=== PATIENT | female | born 1980 | race Caucasian/White ===

== ENCOUNTER 2019-11-27 16:50 | Emergency (ER) | payer OTHER, SELFPAY ==
[2019-11-27 17:00] VITALS: BP 121/84; PULSE 100; RESP 16; TEMP 37.1; O2SAT 98; BMI 28.8
--- NOTE | 2019-11-27 17:07 | ED_ITS ---
Entered by Daniela Truong, acting as scribe for Maged Moreno DO Nov 27, 2019 16:50 Documented by User: Hugo Hugo DO 11/28/19 03:22 HPI - Female Genitourinary General: Chief complaint: Urogenital-Female Stated complaint: BLEEDING HEAVY Time Seen by Provider: 11/27/19 17:08 PFSH ED PFSH: Medical History (Updated 11/27/19 @ 20:49 by Hugo Hugo DO) Degenerative disc disease Surgical History (Updated 11/27/19 @ 17:39 by Daniela Truong) History of back surgery History of tubal ligation Social History Smoking and tobacco status: current every day smoker Course Vital Signs: Vital signs: Vital Signs Temperature 98.7 F 11/27/19 17:00 Pulse Rate 81 11/27/19 20:47 Respiratory Rate 16 11/27/19 20:47 Blood Pressure 97/79 11/27/19 20:47 Pulse Oximetry 98 11/27/19 20:47 MDM - Female MDM Narrative: Medical decision making narrative: 39-year-old female checked out to me by Dr. Moreno. She has been experiencing heavy bleeding, with pelvic pain. No discharge otherwise. Her laboratory is benign. Her hemoglobin is 12. Ultrasound is normal. This is likely dysfunctional or anovulatory bleeding. She will be placed on a 7-day course of progesterone. Gynecology follow-up. Lab Data: Labs: Lab Results 11/27/19 11/27/19 11/27/19 Range/Units 15:15 15:15 17:51 WBC 8.4 (4.0-10.0) 10^3/ uL RBC 4.82 (4.1-5.3) 10^6/u L Hgb 12.2 (11.5-15.3) g/dL Hct 39.1 (37.0-47.0) % MCV 81.1 (81-99) fL MCH 25.3 L (28.0-34.0) pg MCHC 31.2 (30.0-36.0) g/dL RDW 15.7 H (12.1-15.1) % Plt Count 323 (130-400) 10^3/c mm MPV 10.2 (7.4-10.4) fL Neut % (Auto) 52.7 % Lymph % (Auto) 32.2 % [place] % (Auto) 10.5 % Eos % (Auto) 3.1 % Baso % (Auto) 1.0 % Neut # (Auto) 4.5 (1.8-7.7) 10^3/u L Lymph # (Auto) 2.7 (0.8-4.8) 10^3/u L [place] # (Auto) 0.9 (0.2-0.9) 10^3/u L Eos # (Auto) 0.3 (0.0-0.8) 10^3/u L Baso # (Auto) 0.1 (0.0-0.1) 10^3/u L Nucleated RBC % (a uto) 0 % Nucleated RBCs # 0.0 /100WBC Urine Color Red (Yellow) Urine Appearance Turbid (CLEAR) Urine pH 7 (5-7) Ur Specific Gravit y 1.015 (1.005-1.030) Urine Protein 3+ H (Negative) Urine Glucose (UA) Norm (Normal) Urine Ketones Negative (Negative) Urine Blood 3+ H (Negative) Urine Nitrate Negative (Negative) Urine Bilirubin Neg (NEGATIVE) Urine Urobilinogen Norm (Negative) mg/dL Ur Leukocyte Anne ase Negative (Negative) Urine RBC Too numerous to c nt H (0-2) /hpf Urine WBC None (0-5) /hpf Ur Squamous Epith Cells 0-4 H (0-5) Urine Bacteria 1+ H (NONE) Urine HCG, Qual Negative (Negative) Discharge Plan Discharge Patient Disposition: Home, Self-Care Clinical Impression: DUB (dysfunctional uterine bleeding) Condition: Stable Prescriptions: New medroxyprogesterone 10 mg tablet 10 mg PO DAILY 7 Days Qty: 7 RF: 0 No Action Calcium 600 600 mg calcium (1,500 mg) Tablet 600 mg PO DAILY RF: 0 iron 325 mg (65 mg iron) Tablet 325 mg PO DAILY RF: 0 Vitamin B-12 2,000 mcg Tablet Extended Release 2,000 mcg PO DAILY RF: 0 Vitamin D3 25 mcg (1,000 unit) Capsule 25 mcg PO DAILY RF: 0 Discharge Orders: Discharge Order (Routine); Ordered 11/27/19 Ordered By: Hugo Hugo Referrals: George More MD [Physician] - 4-7 days Discharge Diet: Usual diet Discharge Activity: Increase activity as tolerated Patient Instructions: Dysfunctional Uterine Bleeding (ED) Activity Restrictions/Additional Instructions: Return for fever greater than 100, worsening pain, continuing to pass large clots despite treatment, other concerning symptoms. Discharge Date/Time: 11/27/19 20:59 Coding Level of Care Code ED Prom[employer] Executive Producer for Chg Fwd Exam Comprehensive Documented by User: Maged Moreno DO 11/29/19 13:14 HPI - Female Genitourinary 2 General: Chief complaint: Urogenital-Female Stated complaint: BLEEDING HEAVY Time Seen by Provider: 11/27/19 17:08 History of Present Illness: HPI Narrative: 39 yo female presents with heavy bleeding. Pt states that she is a week and a half early for her period, she is bleeding heavy and passing clots. Pt states that she has stabbing pain in her lower abdomen. Pt denies a chance of . Associated symptoms: Reports abdominal pain; Deny headache(s), nausea or syncope Date of Last Menstrual Period: 11/26/19 Review of Systems Const: Denies: fever, chills, body aches, fatigue, malaise or night sweats Eyes: Denies: change in vision or blurry vision ENMT: Denies: throat pain, oral sores/lesions, dental pain, nasal discharge or nasal congestion Card: Denies: chest pain, palpitations, irregular heart rhythm, edema, syncope, shortness of breath on exertion, shortness of breath when lying down or leg pain with exertion Resp: Denies: shortness of breath, productive cough, non-productive cough or wheezing GI: Reports: abdominal pain and cramping; Denies: nausea, vomiting, vomiting blood, coffee grounds in vomit, difficulty swallowing, heartburn/indigestion, diarrhea, constipation, blood in stool or black tarry stool : Denies: flank pain, painful urination, urinary frequency, urinary urgency, urinary incontinence or blood in urine Musc: Denies: neck pain, back pain, extremity pain, extremity swelling, joint pain or joint swelling Skin/Breast: Denies: rash, itching or redness Neuro: Denies: headache, numbness in extremities, weakness in extremities, changes in sensation, lack of coordination, difficulty walking, frequent falls, dizziness, vertigo or confusion Psych: Denies: anxiety, depression, loss of interest, visual hallucinations, auditory hallucinations, suicidal ideation or homicidal ideation Endo: Denies: excessive urination, excessive thirst, tired all the time or cold intolerance Mukesh/Lymph: Denies: easy bruising, easy bleeding, petechiae, enlarged lymph nodes or tender lymph nodes PFSH ED PFSH: Medical History (Updated 11/27/19 @ 20:49 by Hugo Hugo DO) Degenerative disc disease Surgical History (Updated 11/27/19 @ 17:39 by Daniela Truong) History of back surgery History of tubal ligation Social History Smoking and tobacco status: current every day smoker Female Reproductive History: Date of last menstrual period: 11/26/19 Physical Exam Const: COMMON NORMALS: average body habitus, oriented x3 and alert GENERAL APPEARANCE: cooperative, comfortable, well kempt and well developed NUTRITIONAL APPEARANCE: not obese ORIENTATION/CONSCIOUSNESS: Yes awake, Yes oriented to person and Yes oriented to place HENMT: COMMON NORMALS: normocephalic and head/scalp atraumatic HEAD & SCALP: normocephalic and atraumatic MOUTH: oral and palatal mucosa normal, lip normal and tongue normal THROAT: posterior oropharynx normal and tonsils normal Eye: COMMON NORMALS: conjunctivae normal and no scleral icterus CONJUNCTIVA: Yes conjunctivae normal Neck/C-Spine: COMMON NORMALS: full ROM, no lymphadenopathy, supple, no meningeal signs and thyroid normal THYROID: thyroid normal and asymmetrical Lymph: LYMPHATIC: no lymphadenopathy noted Resp: COMMON NORMALS: normal respiratory effort, no retractions, no use of accessory muscles and clear to auscultation bilaterally AUSCULTATION: clear to auscultation bilaterally Cardio: COMMON NORMALS: regular rate and regular rhythm RATE: regular rate RHYTHM: regular rhythm HEART SOUNDS: no murmurs GI: COMMON NORMALS: normal to inspection, nondistended, normoactive bowel sounds, soft to palpation and no hepatosplenomegaly PALPATION: Yes soft and Yes no hepatosplenomegaly : COMMON NORMALS: Yes no CVA tenderness BLADDER/KIDNEY EXAM: Yes no CVA tenderness Back/Pelvis: COMMON NORMALS: no CVA tenderness LUMBAR SPINE/LOWER BACK: Yes normal to inspection Extremity: COMMON NORMALS: no clubbing, cyanosis or edema, no calf tenderness and no pedal edema Neuro: COMMON NORMALS: oriented x3 SENSORIUM/ORIENTATION: Yes alert, Yes oriented to person and Yes oriented to place MENINGEAL SIGNS: Yes no meningeal signs Psych: APPEARANCE: Yes well kempt Skin: COMMON NORMALS: no rashes or lesions noted and skin turgor normal GENERAL SKIN EXAM: no rashes or lesions noted and turgor normal Course ED course: Care transferred to Dr. Hugo at change of shift Vital Signs: Vital signs: Vital Signs Temperature 98.7 F 11/27/19 17:00 Pulse Rate 81 11/27/19 20:47 Respiratory Rate 16 11/27/19 20:47 Blood Pressure 97/79 11/27/19 20:47 Pulse Oximetry 98 11/27/19 20:47 MDM - Female Lab Data: Labs: Lab Results 11/27/19 11/27/19 11/27/19 Range/Units 15:15 15:15 17:51 WBC 8.4 (4.0-10.0) 10^3/ uL RBC 4.82 (4.1-5.3) 10^6/u L Hgb 12.2 (11.5-15.3) g/dL Hct 39.1 (37.0-47.0) % MCV 81.1 (81-99) fL MCH 25.3 L (28.0-34.0) pg MCHC 31.2 (30.0-36.0) g/dL RDW 15.7 H (12.1-15.1) % Plt Count 323 (130-400) 10^3/c mm MPV 10.2 (7.4-10.4) fL Neut % (Auto) 52.7 % Lymph % (Auto) 32.2 % [place] % (Auto) 10.5 % Eos % (Auto) 3.1 % Baso % (Auto) 1.0 % Neut # (Auto) 4.5 (1.8-7.7) 10^3/u L Lymph # (Auto) 2.7 (0.8-4.8) 10^3/u L [place] # (Auto) 0.9 (0.2-0.9) 10^3/u L Eos # (Auto) 0.3 (0.0-0.8) 10^3/u L Baso # (Auto) 0.1 (0.0-0.1) 10^3/u L Nucleated RBC % (a uto) 0 % Nucleated RBCs # 0.0 /100WBC Urine Color Red (Yellow) Urine Appearance Turbid (CLEAR) Urine pH 7 (5-7) Ur Specific Gravit y 1.015 (1.005-1.030) Urine Protein 3+ H (Negative) Urine Glucose (UA) Norm (Normal) Urine Ketones Negative (Negative) Urine Blood 3+ H (Negative) Urine Nitrate Negative (Negative) Urine Bilirubin Neg (NEGATIVE) Urine Urobilinogen Norm (Negative) mg/dL Ur Leukocyte Anne ase Negative (Negative) Urine RBC Too numerous to c nt H (0-2) /hpf Urine WBC None (0-5) /hpf Ur Squamous Epith Cells 0-4 H (0-5) Urine Bacteria 1+ H (NONE) Urine HCG, Qual Negative (Negative) Discharge Plan Discharge Patient Disposition: Home, Self-Care Clinical Impression: DUB (dysfunctional uterine bleeding) Condition: Stable Prescriptions: New medroxyprogesterone 10 mg tablet 10 mg PO DAILY 7 Days Qty: 7 RF: 0 No Action Calcium 600 600 mg calcium (1,500 mg) Tablet 600 mg PO DAILY RF: 0 iron 325 mg (65 mg iron) Tablet 325 mg PO DAILY RF: 0 Vitamin B-12 2,000 mcg Tablet Extended Release 2,000 mcg PO DAILY RF: 0 Vitamin D3 25 mcg (1,000 unit) Capsule 25 mcg PO DAILY RF: 0 Discharge Orders: Discharge Order (Routine); Ordered 11/27/19 Ordered By: Hugo Hugo Referrals: George More MD [Physician] - 4-7 days Discharge Diet: Usual diet Discharge Activity: Increase activity as tolerated Patient Instructions: Dysfunctional Uterine Bleeding (ED) Activity Restrictions/Additional Instructions: Return for fever greater than 100, worsening pain, continuing to pass large clots despite treatment, other concerning symptoms. Discharge Date/Time: 11/27/19 20:59 Coding Level of Care Code ED Promos Executive Producer for Chg Fwd Exam Comprehensive The documentation recorded by the Alexi estrada Kialy, accurately reflects the service I personally performed and the decisions made by me, Maged Moreno, Nov 27, 2019 16:50
[2019-11-27 17:18] VITALS: BP 111/72; PULSE 93; RESP 16; O2SAT 94
[2019-11-27 17:35] LABS: Add Urine Microscopic? YES; Bilirubin Urine Neg (NEGATIVE); Blood Urine 3+ (Negative); Glucose Urine UA Norm (Normal); Ketones Urine Negative (Negative); Leukocyte Esterase Urine Negative (Negative); Nitrate Urine Negative (Negative); Protein Urine 3+ (Negative); Specific Gravity, Urine 1.015 (1.005-1.030); Urine Appearance Turbid (CLEAR); Urine Color Red (Yellow); Urobilinogen Urine Norm (Negative); pH Urine 7 (5-7)
[2019-11-27 17:39] LABS: RBC Urine TOO NUMEROUS TO CNT /hpf (0-2)
[2019-11-27 17:41] LABS: Add Urine Culture? Yes; Bacteria Urine 1+; Squamous Epithelial Cell Urine 0-4 (0-5)
[2019-11-27 17:55] LABS: Basophils # 0.1 10^3/uL (0.0-0.1); Eosinophils # 0.3 10^3/uL (0.0-0.8); Eosinophils % 3.1 %; Hematocrit 39.1 % (37.0-47.0); Hemoglobin 12.2 g/dL (11.5-15.3); Lymphocytes # 2.7 10^3/uL (0.8-4.8); Lymphocytes % 32.2 %; Mean Corpuscular HGB Conc 31.2 g/dL (30.0-36.0); Mean Corpuscular Hemoglobin 25.3 pg (28.0-34.0); Mean Corpuscular Volume 81.1 fL (81-99); Mean Platelet Volume 10.2 fL (7.4-10.4); Monocytes # 0.9 10^3/uL (0.2-0.9); Monocytes % 10.5 %; Neutrophils # 4.5 10^3/uL (1.8-7.7); Neutrophils % 52.7 %; Nucleated Red Blood Cells % 0 %; Platelet Count 323 10^3/cmm (130-400); Red Blood Count 4.82 10^6/uL (4.1-5.3); Red Cell Distribution Width 15.7 % (12.1-15.1); White Blood Count 8.4 10^3/uL (4.0-10.0)
--- NOTE | 2019-11-27 18:08 | USR_ITS ---
PROCEDURE INFORMATION: Exam: US Pelvis Complete, Transabdominal and endovaginal. Exam date and time: 11/27/2019 6:39 PM Age: 39 years old Clinical indication: Menstruation abnormalities; Excessive menstruation; With irregular cycle; Prior surgery; Surgery date: 6+ months; Surgery type: Tubal; Additional info: Mennrhogia TECHNIQUE: Imaging protocol: Real-time transabdominal and endovaginal pelvic ultrasound with image documentation. Complete exam. COMPARISON: No relevant prior studies available. FINDINGS: Uterus/cervix: Nongravid anteverted uterus dimensions 10.1 cm x 4.5 cm x 5.3 cm. Endometrium appears normal maximum diameter 7 mm. No endometrial fluid. Normal transition zone. Small simple nabothian cysts. Cervical length approximately 4 cm. Right adnexa: Right ovary measures 3.2 cm x 1.6 cm x 2.5 cm. Dominant follicle cyst right ovary 7 mm in maximum diameter. Left adnexa: Left ovary measures 3.8 cm x 3.5 cm x 3.5 cm. Dominant physiologic cyst left ovary dimensions 19 mm x 11 mm x 19 mm. Other normal appearing smaller follicle cysts. Free fluid: No free fluid the pelvis. Bladder: Unremarkable as imaged. Vasculature: Positive arterial flow to both color Doppler assessment both ovaries. No visible adnexal mass or cystic lesion. US/US pelvic with transvaginal IMPRESSION: No sonographic evidence of active pelvic pathology.
--- NOTE | 2019-11-27 19:22 | PC.NURSE ---
Patient requesting another blanket, blankets provided
[2019-11-27 20:47] VITALS: BP 97/79; PULSE 81; RESP 16; O2SAT 98
[2019-11-27] MEDS: medroxyprogesterone 2.5 mg Tablet 10 MG PO (20:56)
--- NOTE | 2019-11-27 20:59 | PC.NURSE ---
patient IV removed intact, patient tolerated well
--- NOTE | 2019-11-28 15:20 | DCPLANNER ---
integration project manager had message to schedule a follow up appointment for patient with [facility]. integration project manager called [facility], spoke with Jing, gave clinic patients information. integration project manager was told that patients information would be printed and reviewed. Clinic will call block and case maker and patient with appointment information.
--- NOTE | 2019-11-29 15:28 | DCPLANNER ---
Patient has an appointment scheduled for Saturday, December 21, 2019 at 1:[address] Richardson. Clinic will call patient with appointment information.
--- NOTE | 2020-02-14 07:37 | DCPLANNER ---
Patients appointment scheduled for 12.21.19 with [facility] has been rescheduled.
== END 2019-11-27 20:59 | disposition home or self-care (01) ==
PROVIDERS: Family Medicine; Emergency Provider Emergency Medicine; PCP Registered Nurse
DX: N93.8 Other specified abnormal uterine and vaginal bleeding (principal); F17.200 Nicotine dependence, unspecified, uncomplicated
CPT/HCPCS: 12345; 76830; 76856; 81001; 81025; 85025; 87086; 99281; 99283

== ENCOUNTER 2019-12-13 14:57 | Outpatient (CLI) | payer OTHER, SELFPAY ==
--- NOTE | 2019-12-13 15:05 | XR_ITS ---
WS: [id number] Chest 2 views, 12/13/2019 Clinical Data: COPD/SHORTNESS OF BREATH/COUGH Comparison: None. Findings: No nodules, masses or effusions are seen. The heart is normal. The pulmonary vascularity is not increased. No pneumonia or pneumothorax is seen. XR/XR chest 2V* [id number] Impression: Negative chest.
== END 2019-12-13 14:58 | disposition home or self-care (01) ==
LOC: RAD 14:57
PROVIDERS: PCP Registered Nurse; Visit Provider Registered Nurse
DX: J44.9 Chronic obstructive pulmonary disease, unspecified (principal); R06.02 Shortness of breath; R05 Cough
CPT/HCPCS: 71046

== ENCOUNTER 2019-12-26 14:26 | Emergency (ER) | payer OTHER, SELFPAY ==
[2019-12-26 14:34] VITALS: BP 136/73; PULSE 96; RESP 17; TEMP 37; O2SAT 96; BMI 28.1
--- NOTE | 2019-12-26 14:50 | W.ED.SOB ---
HPI - SOB/Dyspnea General: Chief Complaint: Shortness of Breath/Dyspnea Stated Complaint: sob Time Seen by Provider: 12/26/19 14:43 History of Present Illness: HPI Narrative: 39-year-old female presents to the emergency room with complaint of shortness of breath and cough she has had this for a couple of weeks now she reports a low-grade fever at home no vomiting or diarrhea cough is nonproductive she has a history of asthma she has been on several antibiotics and steroids was no significant improvement. MD elicited complaint: shortness of breath and cough Pertinent past history: asthma Onset (ago): week(s) (2) Context: recent illness Timing: constant Severity: moderate Exacerbating factors: exertion Relieving factors: nothing and bronchodilators Associated symptoms: Deny abdominal pain, chest pain, fever(s), nausea, orthopnea or vomiting Review of Systems Const: Denies: fever, chills, body aches, change in appetite, fatigue or malaise ENMT: Denies: throat pain, ear pain, nasal discharge or nasal congestion Card: Denies: chest pain, edema, shortness of breath on exertion or shortness of breath when lying down Resp: Reports: shortness of breath, non-productive cough and wheezing; Denies: productive cough GI: Denies: abdominal pain, nausea, vomiting, vomiting blood, coffee grounds in vomit, diarrhea, constipation, bloating, blood in stool or black tarry stool : Denies: flank pain, difficulty urinating, painful urination, urinary frequency or urinary urgency Skin/Breast: Denies: rash or itching [facility] ED PFSH: Medical History (Updated 12/26/19 @ 17:55 by Maged Moreno DO) Degenerative disc disease Surgical History (Updated 11/27/19 @ 17:39 by Daniela Truong) History of back surgery History of tubal ligation Social History Smoking and tobacco status: current every day smoker Female Reproductive History: Date of last menstrual period: 11/26/19 Physical Exam Const: COMMON NORMALS: no apparent distress GENERAL APPEARANCE: cooperative and comfortable ORIENTATION/CONSCIOUSNESS: Yes awake, Yes oriented to person, Yes oriented to place and Yes oriented to time HENMT: COMMON NORMALS: normocephalic, head/scalp atraumatic, hearing grossly normal bilaterally, external ears normal, EAC's normal, TM's normal bilaterally, nasal mucous membranes and turbinates normal, moist oral mucous membranes and oropharynx normal HEAD & SCALP: normocephalic and atraumatic NOSE: nasal mucous membranes and turbinates normal EXTERNAL EAR: Yes external ears normal EXTERNAL AUDITORY CANAL: EAC's normal TYMPANIC MEMBRANE: TM's normal bilaterally Eye: COMMON NORMALS: PERRL, EOMs intact bilaterally, conjunctivae normal and no scleral icterus CONJUNCTIVA: Yes conjunctivae normal PUPIL: Yes PERRL Neck/C-Spine: COMMON NORMALS: full ROM, no lymphadenopathy, supple and no JVD Lymph: LYMPHATIC: no lymphadenopathy noted and no lymphedema noted Resp: COMMON NORMALS: normal respiratory effort, no retractions, no use of accessory muscles and clear to auscultation bilaterally AUSCULTATION: clear to auscultation bilaterally Cardio: COMMON NORMALS: no JVD, regular rate, regular rhythm and no murmurs RATE: regular rate RHYTHM: regular rhythm GI: COMMON NORMALS: soft to palpation and no hepatosplenomegaly AUSCULTATION: Yes normoactive bowel sounds PALPATION: Yes soft, No tender, No guarding and Yes no hepatosplenomegaly Extremity: COMMON NORMALS: normal to inspection, normal capillary refill, no clubbing, cyanosis or edema, no calf tenderness and no pedal edema Neuro: SENSORIUM/ORIENTATION: Yes oriented to person, Yes oriented to place and Yes oriented to time Skin: COMMON NORMALS: no rashes or lesions noted GENERAL SKIN EXAM: no rashes or lesions noted Course Vital Signs: Vital signs: Vital Signs Temperature 98.6 F 12/26/19 14:34 Pulse Rate 77 12/26/19 18:07 Respiratory Rate 18 12/26/19 18:07 Blood Pressure 129/85 12/26/19 18:07 Pulse Oximetry 98 12/26/19 18:07 MDM - SOB/Dyspnea MDM Narrative: Medical decision making narrative: She is not been using an albuterol inhaler or Symbicort. She said she ran out of both. We will restart her on her albuterol and encouraged her to follow-up with her primary care doctor for Symbicort. She not had a fever at all but she has had several weeks of this. Organ to go ahead and start on doxycycline as well she does develop significant fever return. Lab Data: Labs: Lab Results 04/06/20 04/06/20 Range/Units 15:05 15:05 WBC 16.6 H (4.0-10.0) 10^3/ uL RBC 5.20 (4.1-5.3) 10^6/u L Hgb 13.6 (11.5-15.3) g/dL Hct 43.3 (37.0-47.0) % MCV 83.3 (81-99) fL MCH 26.2 L (28.0-34.0) pg MCHC 31.4 (30.0-36.0) g/dL RDW 15.6 H (12.1-15.1) % Plt Count 333 (130-400) 10^3/c mm MPV 10.0 (7.4-10.4) fL Neut % (Auto) 66.0 % Lymph % (Auto) 21.3 % [place] % (Auto) 9.2 % Eos % (Auto) 1.7 % Baso % (Auto) 0.5 % Neut # (Auto) 11.0 H (1.8-7.7) 10^3/u L Lymph # (Auto) 3.5 (0.8-4.8) 10^3/u L [place] # (Auto) 1.5 H (0.2-0.9) 10^3/u L Eos # (Auto) 0.3 (0.0-0.8) 10^3/u L Baso # (Auto) 0.1 (0.0-0.1) 10^3/u L Nucleated RBC % (a uto) 0 % Nucleated RBCs # 0.0 /100WBC Sodium 136 (136-145) mmol/L Potassium 3.7 (3.5-5.1) mmol/L Chloride 100 (98-107) mmol/L Carbon Dioxide 24 (22-29) mmol/L Anion Gap 15.7 (5-19) BUN 9 (6-20) mg/dL Creatinine 0.7 (0.5-0.9) mg/dL GFR Calculation 93.6 (90-130) mL/min Glucose 100 (65-115) mg/dL Calculated Osmolal ity 278 L (285-295) mOsm/k g Calcium 9.6 (8.5-10.5) mg/dL Discharge Plan Discharge Patient Disposition: Home, Self-Care Clinical Impression: Asthma with exacerbation Condition: Stable Prescriptions: New doxycycline hyclate 100 mg capsule 100 mg PO BID 10 Days Qty: 20 RF: 0 albuterol sulfate 90 mcg/actuation HFA aerosol inhaler 2 inh INHALATION Q4H PRN (Reason: shortness of breath or wheezing) Qty: 18 RF: 0 No Action calcium carbonate [Calcium 600] 600 mg calcium (1,500 mg) Tablet 600 mg PO DAILY RF: 0 ferrous sulfate [iron] 325 mg (65 mg iron) Tablet 325 mg PO DAILY RF: 0 cyanocobalamin (vitamin B-12) [Vitamin B-12] 2,000 mcg Tablet Extended Release 2,000 mcg PO DAILY RF: 0 cholecalciferol (vitamin D3) [Vitamin D3] 25 mcg (1,000 unit) Capsule 25 mcg PO DAILY RF: 0 Symbicort 160-4.5 mcg/actuation Hfa Aerosol Inhaler 2 puff INHALATION BID RF: 0 Discharge Orders: Discharge Order (Routine); Ordered 12/26/19 Ordered By: Maged Moreno Referrals: Sydney Stockton [Primary Care Provider] - Discharge Diet: Advance as tolerated Discharge Activity: Increase activity as tolerated Discharge Date/Time: 12/26/19 18:08 Coding Level of Care Code ED [employer] Solder Leveler for Chg Fwd Exam Comprehensive
--- NOTE | 2019-12-26 14:53 | XR_ITS ---
WS: [id number] CHEST XRAY TECHNIQUE: Portable chest. CLINICAL INFORMATION: dyspnea/cough COMPARISON: December 13, 2019 FINDINGS: Heart: Normal cardiac silhouette. Lungs: Lungs are clear. No consolidation or pleural effusion. No acute pulmonary infiltrates. Bones: Normal visualized bony structures. XR/XR chest 1V portable [id number] IMPRESSION: Normal chest
[2019-12-26 14:56] VITALS: RESP 16
[2019-12-26 15:13] LABS: Basophils # 0.1 10^3/uL (0.0-0.1); Basophils % 0.5 %; Eosinophils # 0.3 10^3/uL (0.0-0.8); Eosinophils % 1.7 %; Hematocrit 43.3 % (37.0-47.0); Hemoglobin 13.6 g/dL (11.5-15.3); Lymphocytes # 3.5 10^3/uL (0.8-4.8); Lymphocytes % 21.3 %; Mean Corpuscular HGB Conc 31.4 g/dL (30.0-36.0); Mean Corpuscular Hemoglobin 26.2 pg (28.0-34.0); Mean Corpuscular Volume 83.3 fL (81-99); Monocytes # 1.5 10^3/uL (0.2-0.9); Monocytes % 9.2 %; Nucleated Red Blood Cells % 0 %; Platelet Count 333 10^3/cmm (130-400); Red Cell Distribution Width 15.6 % (12.1-15.1); White Blood Count 16.6 10^3/uL (4.0-10.0)
[2019-12-26 15:31] LABS: Anion Gap 15.7 (5-19); Blood Urea Nitrogen 9 mg/dL (6-20); Calcium 9.6 mg/dL (8.5-10.5); Carbon Dioxide 24 mmol/L (22-29); Chloride 100 mmol/L (98-107); Glomerular Filtration Rate 93.6 mL/min (90-130); Glucose 100 mg/dL (65-115); Osmolality Calculated 278 mOsm/kg (285-295); Potassium 3.7 mmol/L (3.5-5.1); Sodium 136 mmol/L (136-145)
[2019-12-26 16:24] VITALS: BP 104/70; PULSE 84; RESP 18; O2SAT 97
--- NOTE | 2019-12-26 16:31 | CTR_ITS ---
PROCEDURE INFORMATION: Exam: CT Angiography Chest With Contrast Exam date and time: 12/26/2019 4:51 PM Age: 39 years old Clinical indication: Cough and shortness of breath; Patient HX: Persistentcough/congestion with SOB x several months after abx. /steroid therapy. ; Additional info: Dyspnea TECHNIQUE: Imaging protocol: Computed tomographic angiography of the chest with intravenous contrast. 3D rendering: MIP and/or 3D reconstructed images were created by the technologist. Total DLP: 556.55 mGy-cm Radiation optimization: All CT scans at this facility use at least one of these dose optimization techniques: automated exposure control; mA and/or kV adjustment per patient size (includes targeted exams where dose is matched to clinical indication); or iterative reconstruction. Contrast material: OMNI 350; Contrast volume: 67 ml; Contrast route: 18G; COMPARISON: CR XR chest 1V portable [id number] 12/26/2019 3:07 PM FINDINGS: Pulmonary arteries: Normal. No pulmonary emboli. Aorta: Unremarkable. No aortic aneurysm. No aortic dissection. Lungs: Mild dependent atelectasis. No consolidation. No masses. Pleural space: Unremarkable. No pneumothorax. No pleural effusion. Heart: Unremarkable. No cardiomegaly. No pericardial effusion. Lymph nodes: Unremarkable. No enlarged lymph nodes. Bones/joints: Unremarkable. No acute fracture. Soft tissues: Unremarkable. CT/CT angio chest PE protcl [id number] IMPRESSION: No pulmonary embolism. Radiation Dose CTDIVOL = (mGy): DLP = 556.55 (mGy-cm)
[2019-12-26] MEDS: iohexol 350 mg/mL 100 mL Btl IV (17:18)
[2019-12-26 18:07] VITALS: BP 129/85; PULSE 77; RESP 18; O2SAT 98
== END 2019-12-26 18:08 | disposition home or self-care (01) ==
PROVIDERS: Emergency Provider Family Medicine; PCP Registered Nurse
DX: J45.901 Unspecified asthma with (acute) exacerbation (principal); F17.200 Nicotine dependence, unspecified, uncomplicated; M19.90 Unspecified osteoarthritis, unspecified site
CPT/HCPCS: 12345; 36415; 71045; 71275; 80048; 85025; 99282; 99283; Q9967

== ENCOUNTER → 2020-02-22 11:10 | Outpatient (BNVA) | payer OTHER, SELFPAY | PROVIDERS: PCP Registered Nurse; Visit Provider Obstetrics & Gynecology | DX: Z12.4 Encounter for screening for malignant neoplasm of cervix (principal); N92.6 Irregular menstruation, unspecified | CPT/HCPCS: 84443 ==

== ENCOUNTER → 2020-02-27 13:58 | Outpatient (BNVA) | payer OTHER, SELFPAY | PROVIDERS: PCP Registered Nurse; Visit Provider Internal Medicine Rheumatology | DX: M05.9 Rheumatoid arthritis with rheumatoid factor, unspecified (principal); F17.210 Nicotine dependence, cigarettes, uncomplicated; R76.8 Other specified abnormal immunological findings in serum; Z79.899 Other long term (current) drug therapy | CPT/HCPCS: 80076; 81001; 82565; 82570; 84156; 85025; 85651; 86140; 86160; 99204 ==

== ENCOUNTER 2020-04-18 08:21 | Outpatient (CLI) | payer OTHER, SELFPAY ==
--- NOTE | 2020-04-18 08:29 | XR_ITS ---
WS: [id number] LUMBAR SPINE: 3 VIEWS TECHNIQUE: AP, lateral and L5-S1 spot. HISTORY: rheumatoid arthritis COMPARISON: None available. Very minimal LEFT convex curvature the lumbar spine. L5 is partially sacralized. Mild narrowing of the L4-5 and L5-S1 disc spaces. Mild facet joint arthritis in the lower lumbar spin e. No fractures. SI joints are symmetric bilaterally. No soft tissue abnormalities. IUD over the sacrum. XR/XR lumbar spine 2-3V* [id number] IMPRESSION: 1. Very minimal LEFT convex scoliosis lumbar spine. 2. Partial sacralization of L5.
--- NOTE | 2020-04-18 08:29 | XR_ITS ---
WS: [id number] PELVIS: AP VIEW SUBMITTED HISTORY: rheumatoid arthritis COMPARISON: None available. Bones and soft tissues of the pelvis are intact. No fracture or dislocation. No erosions along the SI joints. IUD over the mid pelvis. XR/XR pelvis 1-2V* [id number] IMPRESSION: Negative pelvis.
== END 2020-04-18 08:22 | disposition home or self-care (01) ==
LOC: RADWPI 08:22
PROVIDERS: PCP Registered Nurse; Visit Provider Internal Medicine Rheumatology
DX: M06.9 Rheumatoid arthritis, unspecified (principal)
CPT/HCPCS: 72100; 72170

== ENCOUNTER 2020-05-04 08:31 | Outpatient (CLI) | payer OTHER, SELFPAY ==
--- NOTE | 2020-05-04 09:19 | CT_ITS ---
WS: [id number] CT scan of the maxillofacial region. Additional two-dimensional coronal and sagittal reconstruction w as performed. 05/04/2020 Clinical Data: DEVELOPMENTAL DISORDERS OF JAW Comparison: None. DLP: 912.66 mGy-centimeters All CT scans at [facility] use at least one of these dose optimization techniques: automat ed exposure control; mA and/or kV adjustment per patient size (includes targeted exams where dose is matched to clinical indication); or iterative reconstruction. Findings: The facial bones are unremarkable. The paranasal sinuses show no abnormalities. The orbits and orbital contents are normal. The mastoid air cells, internal auditory canals, and sell a turcica are not remarkable. Nasal septum is deviated from left to right. The temporal mandibular joints appear to be normal. The zygomatic arches and nasal bones are normal. The floor of the mouth and parapharyngeal regions demonstrate no abnormalities. The salivary glands a ppear to be normal. CT/CT facial bones wo con* [id number] Impression: Negative CT scan of the maxilla facial region.
== END 2020-05-04 08:32 | disposition home or self-care (01) ==
LOC: RADWPI 08:32
PROVIDERS: Family Provider Registered Nurse; PCP Registered Nurse; Visit Provider Specialist
DX: M27.0 Developmental disorders of jaws (principal)
CPT/HCPCS: 70486

== ENCOUNTER → 2020-06-05 14:01 | Outpatient (BNVA) | payer OTHER, SELFPAY | PROVIDERS: Family Provider Registered Nurse; PCP Registered Nurse; Visit Provider Internal Medicine Rheumatology | DX: M05.79 Rheumatoid arthritis with rheumatoid factor of multiple sites without organ or systems involvement (principal); Z79.899 Other long term (current) drug therapy; J34.0 Abscess, furuncle and carbuncle of nose; M27.9 Disease of jaws, unspecified; F17.210 Nicotine dependence, cigarettes, uncomplicated | CPT/HCPCS: 36415; 80076; 82565; 85025; 85651; 86140; 99214 ==

== ENCOUNTER → 2020-07-17 14:25 | Outpatient (BNVA) | payer OTHER, SELFPAY | PROVIDERS: Family Provider Registered Nurse; PCP Registered Nurse; Visit Provider Internal Medicine Rheumatology | DX: Z79.899 Other long term (current) drug therapy (principal) | CPT/HCPCS: 36415; 80076; 82565; 85025; 85651; 86140 ==

== ENCOUNTER → 2020-10-03 15:11 | Outpatient (BNVA) | payer OTHER, SELFPAY | PROVIDERS: Family Provider Registered Nurse; PCP Registered Nurse; Visit Provider Internal Medicine Rheumatology | DX: M05.79 Rheumatoid arthritis with rheumatoid factor of multiple sites without organ or systems involvement (principal); Z79.899 Other long term (current) drug therapy; Z11.1 Encounter for screening for respiratory tuberculosis; R76.8 Other specified abnormal immunological findings in serum; F17.210 Nicotine dependence, cigarettes, uncomplicated | CPT/HCPCS: 36415; 80076; 82565; 85025; 85651; 86140; 86480; 99214 ==

== ENCOUNTER 2020-12-12 08:54 | Outpatient (CLI) | payer OTHER, SELFPAY ==
--- NOTE | 2020-12-12 09:00 | US_ITS ---
WS: [id number] Complete ABDOMINAL ULTRASOUND HISTORY: RUQ ABDOMINAL PAIN/ABDOMINAL BLOATING COMPARISON: None available. Liver: 17.4 cm in length. Liver is normal size and echogenicity with no mass or intrahepatic dilatati on. Gallbladder: Normally distended with no gallstones, wall thickening or pericholecystic fluid. Reverbe ration artifact within a portion of the gallbladder. Gallbladder wall thickness: 0.2 cm. Pancreas: Normal size and echogenicity. CBD: 0.3 cm. Right kidney: 11.5 cm x 5.5 cm x 4.3 cm. No mass, cortical thickening or hydronephrosis. Left kidney: 11.1 cm x 6.0 cm x 5.7 cm. No mass, cortical thickening or hydronephrosis. Spleen: Normal size and echogenicity. Abdominal aorta and IVC are within normal limits. No ascites. US/US abdomen complete* [id number] IMPRESSION: Normal complete abdomen ultrasound.
== END 2020-12-12 08:55 | disposition home or self-care (01) ==
LOC: RAD 08:59
PROVIDERS: PCP Registered Nurse; Visit Provider Registered Nurse
DX: R10.11 Right upper quadrant pain (principal); R14.0 Abdominal distension (gaseous)
CPT/HCPCS: 76700

== ENCOUNTER 2021-01-03 09:29 | Outpatient (CLI) | payer OTHER, SELFPAY ==
--- NOTE | 2021-01-03 09:41 | NM_ITS ---
WS: [id number] NUCLEAR MEDICINE HIDA SCAN WITH GALLBLADDER EJECTION FRACTION HISTORY: ABNORMAL CT OF THE ABD/GALLBLADDER ANOMALY COMPARISON: 12/12/2020 TECHNIQUE: The patient was intravenously injected with 7.6 mCi of TC99m Mebrofenin. Immediate imaging over the right upper quadrant was followed by 5 minute image and additional images for a total of 60 minutes. Normal uptake of radiotracer throughout the liver. Activity identified in the gallbladder at 10 minutes and well distended by 60 minutes. Activity in the proximal small bowel was seen by 20 minutes. Good washout of the radiotracer from the liver by 60 minutes. The patient then drank 8 ounces of Ensure Plus. Ejection fraction at 60 minutes was 77%. Normal GB ej ection fraction is 35-75%. Post fatty meal symptoms: None. NM/NM hepatobiliary w phar* [id number] IMPRESSION: 1. Normal HIDA scan. 2. Normal gallbladder ejection fraction.
== END 2021-01-03 09:30 | disposition home or self-care (01) ==
LOC: NM 09:38
PROVIDERS: PCP Registered Nurse; Visit Provider Registered Nurse
DX: Q44.1 Other congenital malformations of gallbladder (principal)
CPT/HCPCS: 78227; A9537

== ENCOUNTER 2021-01-09 09:08 | Outpatient (CLI) | payer OTHER, SELFPAY ==
--- NOTE | 2021-01-09 09:10 | MR_ITS ---
WS: [id number] INDICATION: Gallbladder anomaly. Hepatic lesion. TECHNIQUE: MRI of the abdomen without and with gadolinium enhancement. Axial T1 and T2 postgadolinium imaging. Dual echo axial imaging. 2-D fiesta and coronal imaging. Some images are degraded due to br eathing artifact. FINDINGS: Comparison ultrasound abdomen December 13, 2019 and HIDA January 03, 2021. Mild hepatomegaly. Small T2 hyperintense left hepatic lesion measuring 1.6 cm. Small amount of associ ated faint enhancement. This is somewhat difficult to evaluate due to location and breathing artifact . This likely represents incidental cavernous hemangioma. Normal portal vein and splenic vein. Gallbladder appears normal. No gallbladder wall thickening or pe richolecystic fluid. Pancreas is normal in appearance. Normal common bile duct. No intrahepatic bilia ry ductal dilatation. Normal tapering of the common bile duct and pancreatic head. Normal spleen. Normal GE junction. Adrenal glands are normal. No hydronephrosis. Normal caliber abdom inal aorta. Tiny left renal cyst measuring 5 mm. MR/MR abdomen wo/w con* [id number] IMPRESSION: 1. Mild hepatomegaly. Liver is normal in appearance. 2. T2 hyperintense enhancing 1.6 cm left hepatic lesion is nonspecific but lik jonny represents incidental cavernous hemangioma. Recommend 6 month follow-up wit h contrast-enhanced CT with triphasic liver protocol. 3. Normal common bile duct. No intrahepatic biliary ductal dilatation. 4. Normal pancreas. 5. Tiny left renal cyst measuring 5 mm. 6. No hydronephrosis in either kidney. 7. Hydropic elongated gallbladder. No gallbladder wall thickening or perichole cystic fluid.
[2021-01-09] MEDS: gadobenate dimeglumine 20 mL vial IV (10:38)
== END 2021-01-09 09:09 | disposition home or self-care (01) ==
LOC: RADSHAW 09:09
PROVIDERS: PCP Registered Nurse; Visit Provider Registered Nurse
DX: R93.5 Abnormal findings on diagnostic imaging of other abdominal regions, including retroperitoneum (principal); Q44.1 Other congenital malformations of gallbladder; K76.9 Liver disease, unspecified; R16.0 Hepatomegaly, not elsewhere classified; Q61.01 Congenital single renal cyst
CPT/HCPCS: 74183; A9577

== ENCOUNTER 2021-01-10 10:40 | Outpatient (CLI) | payer OTHER, SELFPAY ==
--- NOTE | 2021-01-10 10:44 | MR_ITS ---
WS: [id number] MRI OF THE PELVIS WITHOUT AND WITH GADOLINIUM ENHANCEMENT. INDICATION: Adnexal cyst. Abnormal CT. TECHNIQUE: MRI of the pelvis without and with gadolinium enhancement. Axial T1 and T2 and STIR imagin g. Coronal T1-T2 and STIR imaging. Sagittal T1-T2 and multiplanar post gadolinium imaging. FINDINGS: Anteverted uterus. Incidental nabothian cyst at the cervix. Thin endometrium. IUD in normal position. Bladder is decompressed. Multifollicular ovaries bilaterally with dominant right ovarian cyst measuring 1.5 x 1.5 CM. This has a simple appearance. Dominant left-sided simple follicle measuring 9 mm. No suspicious ovarian lesio ns. No adnexal masses. No free fluid in the pelvis. No pelvic or inguinal lymphadenopathy. Normal visualized sigmoid colon. Normal bone marrow signal in the pelvis and sacrum. Normal proximal femurs. Normal pelvic soft tissue s. Mild disc bulging L4-5. Distal sacrum and coccyx appear normal. MR/MR pelvis wo/w con [id number] IMPRESSION: 1. Normal uterus and endometrium. IUD in normal position. 2. Incidental simple right ovarian cyst measuring 1.5 x 1.5 CM. 3. Multifollicular ovaries bilaterally. Dominant left follicle measuring appro ximately 9 mm. 4. Incidental nabothian cysts in the cervix. 5. No adnexal masses. 6. No suspicious findings.
[2021-01-10] MEDS: gadobenate dimeglumine 20 mL vial IV (11:59)
== END 2021-01-10 10:41 | disposition home or self-care (01) ==
LOC: RADSHAW 10:41
PROVIDERS: PCP Registered Nurse; Visit Provider Registered Nurse
DX: R93.5 Abnormal findings on diagnostic imaging of other abdominal regions, including retroperitoneum (principal); Q44.1 Other congenital malformations of gallbladder; K76.9 Liver disease, unspecified; N88.8 Other specified noninflammatory disorders of cervix uteri
CPT/HCPCS: 72197; A9577

== ENCOUNTER → 2021-01-23 09:20 | Outpatient (BNVA) | payer OTHER, SELFPAY | PROVIDERS: PCP Registered Nurse; Visit Provider Internal Medicine Rheumatology | DX: Z79.899 Other long term (current) drug therapy (principal); M05.79 Rheumatoid arthritis with rheumatoid factor of multiple sites without organ or systems involvement | CPT/HCPCS: 36415; 80076; 82565; 85025; 86140 ==

== ENCOUNTER → 2021-01-30 14:20 | Outpatient (BNVA) | payer MEDICAID, SELFPAY | PROVIDERS: PCP Registered Nurse; Visit Provider Internal Medicine Rheumatology | DX: M05.79 Rheumatoid arthritis with rheumatoid factor of multiple sites without organ or systems involvement (principal); R14.0 Abdominal distension (gaseous); Z79.899 Other long term (current) drug therapy; R76.8 Other specified abnormal immunological findings in serum; F17.210 Nicotine dependence, cigarettes, uncomplicated | CPT/HCPCS: 99214 ==

== ENCOUNTER 2021-02-05 09:10 | Outpatient (CLI) | payer MEDICAID, SELFPAY ==
--- NOTE | 2021-02-05 09:15 | XR_ITS ---
WS: [id number] Abdomen series: PA CHEST AND 2 VIEWS OF THE ABDOMEN HISTORY: R14.0 - Abdominal distension (gaseous) COMPARISON: None available. Lungs are clear and well aerated. Heart size is normal. No free air beneath the diaphragm. Mild constipation. No obstructive pattern. Phleboliths in the pelvis. IUD is noted. XR/XR acute abdomen series [id number] IMPRESSION: 1. No free air or GI tract obstruction. 2. Mild constipation.
== END 2021-02-05 09:11 | disposition home or self-care (01) ==
LOC: RADWPI 09:15
PROVIDERS: PCP Registered Nurse; Visit Provider Internal Medicine Rheumatology
DX: R14.0 Abdominal distension (gaseous) (principal)
CPT/HCPCS: 74022

== ENCOUNTER → 2021-07-02 08:53 | Outpatient (BNVA) | payer MEDICAID, SELFPAY | PROVIDERS: PCP Registered Nurse; Visit Provider Internal Medicine Rheumatology | DX: M05.79 Rheumatoid arthritis with rheumatoid factor of multiple sites without organ or systems involvement (principal); R76.8 Other specified abnormal immunological findings in serum; Z79.899 Other long term (current) drug therapy | CPT/HCPCS: 36415; 80076; 82565; 85025; 86140 ==

== ENCOUNTER → 2021-07-09 12:50 | Outpatient (BNVA) | payer MEDICAID, SELFPAY | PROVIDERS: PCP Registered Nurse; Visit Provider Internal Medicine Rheumatology | DX: M05.79 Rheumatoid arthritis with rheumatoid factor of multiple sites without organ or systems involvement (principal); R76.8 Other specified abnormal immunological findings in serum; Z79.899 Other long term (current) drug therapy; R14.0 Abdominal distension (gaseous); D18.09 Hemangioma of other sites; F17.200 Nicotine dependence, unspecified, uncomplicated | CPT/HCPCS: 99214 ==

== ENCOUNTER 2021-11-07 14:24 | Outpatient (CLI) | payer MEDICAID, SELFPAY ==
[2021-11-07 15:01] LABS: Basophils # 0.1 10^3/uL (0.0-0.1); Basophils % 0.7 %; Eosinophils # 0.2 10^3/uL (0.0-0.8); Eosinophils % 1.8 %; Hematocrit 45.8 % (37.0-47.0); Hemoglobin 14.4 g/dL (11.5-15.3); Mean Corpuscular HGB Conc 31.4 g/dL (30.0-36.0); Mean Corpuscular Hemoglobin 26.3 pg (28.0-34.0); Mean Corpuscular Volume 83.7 fl (81-99); Mean Platelet Volume 10.3 fL (7.4-10.4); Monocytes # 0.8 10^3/uL (0.2-0.9); Monocytes % 8.6 %; Neutrophils # 4.35 10^3/uL (1.8-7.7); Neutrophils % 46.4 %; Nucleated Red Blood Cells % 0 %; Platelet Count 344 10^3/cmm (130-400); Red Blood Count 5.47 10^6/uL (4.1-5.3); Red Cell Distribution Width 14.6 % (12.1-15.1); White Blood Count 9.4 10^3/uL (4.0-10.0)
[2021-11-07 15:22] LABS: Alanine Aminotransferase 12 U/L (0-33); Albumin Level 4.4 g/dL (3.5-5.2); Alkaline Phosphatase 61 IU/L (35-105); Aspartate Amino Transferase 13 U/L (0-32); Glomerular Filtration Rate 136.6 mL/min (90-130); Total Bilirubin 0.2 mg/dL (0.15-1.2); Total Protein 7.4 g/dL (6.6-8.7)
== END 2021-11-07 14:25 | disposition home or self-care (01) ==
LOC: LAB 14:26
PROVIDERS: PCP Registered Nurse; Visit Provider Internal Medicine Rheumatology
DX: M05.79 Rheumatoid arthritis with rheumatoid factor of multiple sites without organ or systems involvement (principal); Z79.899 Other long term (current) drug therapy
CPT/HCPCS: 80076; 82565; 85025; 86140

== ENCOUNTER → 2022-02-25 10:30 | Outpatient (BNVA) | payer MEDICAID, SELFPAY | PROVIDERS: PCP Registered Nurse; Visit Provider Internal Medicine Rheumatology | DX: M05.79 Rheumatoid arthritis with rheumatoid factor of multiple sites without organ or systems involvement (principal); R76.8 Other specified abnormal immunological findings in serum; Z79.899 Other long term (current) drug therapy; D18.09 Hemangioma of other sites; F17.200 Nicotine dependence, unspecified, uncomplicated | CPT/HCPCS: 80076; 82565; 85025; 85651; 86140; 99214 ==

== ENCOUNTER → 2022-09-25 11:00 | Outpatient (BNVA) | payer MEDICAID, SELFPAY | PROVIDERS: PCP Internal Medicine Gastroenterology; Visit Provider Nurse Practitioner Women's Health | DX: Z20.2 Contact with and (suspected) exposure to infections with a predominantly sexual mode of transmission (principal); T83.32XA Displacement of intrauterine contraceptive device, initial encounter; R10.2 Pelvic and perineal pain; Y82.8 Other medical devices associated with adverse incidents | CPT/HCPCS: 81000 ==

== ENCOUNTER 2022-10-19 16:51 | Inpatient (IN) | payer MEDICAID, SELFPAY ==
[2022-10-19 17:05] VITALS: BP 127/70; PULSE 107; RESP 16; TEMP 36.8; O2SAT 97; BMI 20.5
--- NOTE | 2022-10-19 17:26 | ED.C_ITS ---
HPI - Psych General: Chief Complaint: Psychiatric Symptoms Stated Complaint: PSYCH EVAL Time Seen by Provider: 10/19/22 17:06 History of Present Illness: This patient is a 42 year old presenting with bizarre behavior. The patient is not able to give me any logical explanation as to why she is here. Eventually she said that her family wanted her to come in because a dog bit her and she shot it. She also says that they are worried about her trying to hurt herself. She says that she never has even thought about it. She says that she hasn't been acting right due to medication side effects. She stopped taking her prescription medicines and says that she is better now. She told me that she stopped taking them a month ago. Family tells me that the patient has been acting strangely since Thursday, but it got really bad on Thursday when she did shoot one of their dogs. She said that it bit her, but there were no rosado on her per family. Since then she has not been sleeping - she has been walking and dancing around the house quoting the bible, throwing things out of the house, staring at family members while they slept. At one point she got hold of a gun and was laying in bed with the gun laying across her chest. Her family members took the gun and secured it away from her. She does use medical marijuana, but family is not aware of other drug use. She does not generally use alcohol. She has been on etanercept for RA and family doesn't know when she stopped taking it. She also was on linaclotide and stopped that as well. The family doesn't know of her being on any other medicines. She has never had any psychiatric symptoms previously, but bipolar and schizophrenia run in the family and her mother committed suicide when the patient was 4. Family concerned that she will try to leave. I have asked them to write an affidavit and I also wrote one - and I assured them that she would not be allowed to leave in her current condition. 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 Degenerative disc disease Diagnosed in 2014. She does take baclofen and Percocet as needed for her back pain. Gastroparesis Leukocytosis States that she has had an elevated white count since about 2014 and follows up with Dr. Chavez. She was noted to have an increased KARLA and possibly has lupus and has an appointment to see national service officer Dr. Islas later this month. She currently follows up with Dr. Chavez for elevated white count No pertinent past medical history Denies history of: diabetes, hypertension, hypercholesterolemia, thyroid, heart, liver problems, DVT/PE, bleeding or clotting disorders. PCP: ADAMA Kaur ([facility]) Possible exposure to STD Seropositive rheumatoid arthritis of multiple sites Skin rash Surgical History History of back surgery Has had degenerative disease and underwent back surgery on 05/28/2016. History of mandibular surgery access bone growth removed History of tubal ligation 2003, laparoscopic procedure. Status post surgery Right finger surgery; tendon repair Family History Father Diabetes Thyroid condition Grandmother Diabetes paternal Hypertension paternal Hyperlipidemia paternal Heart disease paternal Stroke maternal and paternal Grandfather Diabetes maternal Family/Other Lymphoma paternal uncle Lung cancer paternal uncle Ovarian cancer maternal aunt, diagnosed at age 40 Brother Osteosarcoma Denies family history of Colon cancer Uterine cancer Social History Smoking and tobacco status: never smoked History of recent travel: No Additional social history: - TOBACCO USE: STARTED SMOKING AT AGE 8 AND CURRENTLY SMOKES ONE PACK PER DAY DRUG USE: History of IV methamphetamine, marijuana, MDMA quintin, mushrooms, acid, K2 use, narcotic abuse. Denies any drug use since November 2010. ALCOHOL USE: Used to drink beer on occasion, denies alcohol use since November 2010. 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. Female Reproductive History: Date of last menstrual period: 11/26/19 Physical Exam Const: COMMON NORMALS: no acute distress, no limitations and alert GENERAL APPEARANCE: disheveled and appears older than stated age HENMT: HEAD & SCALP: normal to inspection FACE & SINUS: normal facial exam Eye: GENERAL EYE: appearance normal, both eyes and all related structures Neck/C-Spine: COMMON NORMALS: supple, no meningeal signs and no JVD Chest: COMMONS NORMALS: normal inspection of the chest Resp: COMMON NORMALS: normal respiratory effort, No use of accessory muscles and clear to auscultation bilaterally AUSCULTATION: clear to auscultation bilaterally Cardio: COMMON NORMALS: no JVD, regular rate, regular rhythm and No murmurs present (Cardio) RATE: regular rate RHYTHM: regular rhythm GI: COMMON NORMALS: Normal to inspection, nondistended, normoactive bowel sounds present, Soft to palpation and non-tender INSPECTION: Yes normal to in spection AUSCULTATION: Yes normoactive bowel sounds PALPATION: Yes Soft to palpation Back/Pelvis: COMMON NORMALS: thoracic and lumbar spine normal to inspection Extremity: COMMON NORMALS: normal to inspection Neuro: COMMON NORMALS: moves all extremities, no focal motor deficits and no sensory deficits noted SENSORIUM/ORIENTATION: Yes alert MENINGEAL SIGNS: Yes no meningeal signs Psych: APPEARANCE: Yes disheveled ATTITUDE: Yes bizarre, Yes uncooperative, Yes evasive and Yes Guarded attititude/behavior present ACTIVITY/MOTOR BEHAVIOR: Yes psychomotor slowing and Yes Avoids eye contact (attititude/behavior) MOOD & AFFECT: Yes depressed mood, Yes irritable and Yes Labile affect present THOUGHT PROCESS: disorganized INSIGHT: Poor insight present (Psych) Skin: COMMON NORMALS: no rashes or lesions noted and turgor normal GENERAL SKIN EXAM: no rashes or lesions noted and turgor normal Course Vital Signs: Vital signs: Vital Signs Temperature 98.3 F 10/19/22 17:05 Pulse Rate 107 H 10/19/22 17:05 Respiratory Rate 16 10/19/22 17:05 Blood Pressure 127/70 10/19/22 17:05 Pulse Oximetry 97 10/19/22 17:05 Oxygen Delivery Me thod 10/19/22 17:05 MDM - Psych Medical Decision Making Patient with psychotic behavior, possibly suicidal ideation, violence against an animal. Concerning that this would begin at the age of 42 and medical cause must be carefully considered. She has been on an immune suppressing medication - but family reports no recent illness, fever, injury. She has a remote history of drug use including methamphetamines. Late stage syphilis also in the differential with a history of IV drug use in the past. Her neuro exam is non focal and there are no signs of trauma to suggest a head injury. CT pending. Care turned over to Dr. Hugo. Lab Data Radiology Impressions Head CT 10/19/22 17:40 IMPRESSION: No acute intracranial abnormality. Discharge Plan Discharge Condition: Stable Prescriptions: No Action famotidine 40 mg tablet 40 mg PO BID Mirena 20 mcg/24 hours (5 yrs) 52 mg intrauterine device 1 device INTRAUTERI DIRECTED Qty: 1 0RF Enbrel SureClick 50 mg/mL (1 mL) pen injector See Rx Instructions .ROUTE .COMPLEX Qty: 12 1RF Dose Instruction: INJECT 50 MG UNDER THE SKIN (SUBCUTANOUSLY) EVERY 7 DAYS Rx Instructions: INJECT 50 MG UNDER THE SKIN (SUBCUTANOUSLY) EVERY 7 DAYS Linzess 72 mcg capsule 72 mcg PO DAILY Symbicort 160-4.5 mcg/actuation Hfa Aerosol Inhaler 2 puff INHALATION BID albuterol sulfate 90 mcg/actuation HFA aerosol inhaler 2 inh INHALATION Q4H PRN (Reason: shortness of breath or wheezing) Qty: 18 0RF Referrals: Onelia Lyles MD,PHD [Primary Care Provider] - Coding Level of Care Code ED Schedule Planning Manager for Chg Fwd Exam Comprehensive
--- NOTE | 2022-10-19 17:40 | CTR_ITS ---
PROCEDURE INFORMATION: Exam: CT Head Without Contrast Exam date and time: 10/19/2022 5:47 PM Age: 42 years old Clinical indication: Altered mental status/memory loss; Confusion or disorientation; Additional info: AMS TECHNIQUE: Imaging protocol: Computed tomography of the head without contrast. Radiation optimization: All CT scans at this facility use at least one of these dose optimization techniques: automated exposure control; mA and/or kV adjustment per patient size (includes targeted exams where dose is matched to clinical indication); or iterative reconstruction. Other protocol: This patient has received 0 known CTs and 0 known cardiac nuclear medicine studies in the 12 months prior to the current study. COMPARISON: CT facial bones wo con* [id number] 05/04/2020 9:37 AM RADIATION DOSE METRICS: Total DLP (mGy-cm): 1077.95 FINDINGS: Brain: The brain is unremarkable. There is no mass effect or significant white matter disease. There is no acute intracranial hemorrhage. Cerebral ventricles: There is no significant ventricular dilation. The basal cisterns are unremarkable. Paranasal sinuses: The paranasal sinuses are clear. Mastoid air cells: Visualized mastoid air cells are well aerated. Bones/joints: The calvarium is intact. Soft tissues: Unremarkable. CT/CT head wo con* [id number] IMPRESSION: No acute intracranial abnormality.
[2022-10-19 18:33] LABS: Basophils # 0.1 10^3/uL (0.0-0.1); Basophils % 0.5 %; Eosinophils % 0.2 %; Hematocrit 41.1 % (37.0-47.0); Hemoglobin 13.2 g/dL (11.5-15.3); Lymphocytes # 2.4 10^3/uL (0.8-4.8); Lymphocytes % 21.7 %; Mean Corpuscular HGB Conc 32.1 g/dL (30.0-36.0); Mean Corpuscular Hemoglobin 26.8 pg (28.0-34.0); Mean Corpuscular Volume 83.5 fl (81-99); Mean Platelet Volume 10.7 fL (7.4-10.4); Monocytes # 0.9 10^3/uL (0.2-0.9); Monocytes % 8.2 %; Neutrophils % 69.2 %; Nucleated Red Blood Cells % 0 %; Platelet Count 322 10^3/cmm (130-400); Red Blood Count 4.92 10^6/uL (4.1-5.3); Red Cell Distribution Width 14.9 % (12.1-15.1)
[2022-10-19 19:14] LABS: Alanine Aminotransferase 14 U/L (0-33); Albumin Level 4.2 g/dL (3.5-5.2); Alkaline Phosphatase 59 U/L (35-105); Anion Gap 20.4 (5-19); Aspartate Amino Transferase 16 U/L (0-32); Blood Urea Nitrogen 10 mg/dL (6-20); Calcium 9.6 mg/dL (8.5-10.5); Carbon Dioxide 20 mmol/L (22-29); Chloride 100 mmol/L (98-107); Globulin 3.1 g/dL (1.3-4.6); Glucose 82 mg/dL (65-115); Osmolality Calculated 282 mOsm/kg (285-295); Potassium 3.4 mmol/L (3.5-5.1); Sodium 137 mmol/L (136-145); Thyroid Stimulating Hormone 0.66 uIU/mL (0.27-4.20); Total Bilirubin 0.4 mg/dL (0.15-1.2); Total Protein 7.3 g/dL (6.6-8.7)
[2022-10-19 19:21] LABS: Acetaminophen < 5.0 ug/mL (10-30); Alcohol Level < 10 mg/dL (0-10); Salicylate < 0.3 mg/dL (3-10)
[2022-10-19 20:36] LABS: HCG Qualitative Urine. Negative (Negative)
[2022-10-19 20:42] LABS: Amphetamines Screen Urine Negative (Negative); Barbiturates Screen Urine Negative (Negative); Benzodiazepines Screen Urine Negative (Negative); Cocaine Screen Urine Negative (Negative); Opiate Screen Urine Negative (Negative); PCP Screen Urine Negative (Negative); THC Screen Urine Positive (Negative)
[2022-10-19 20:47] LABS: Add Urine Microscopic? YES; Bilirubin Urine Neg (Negative); Blood Urine 3+ (Negative); Glucose Urine UA Norm (Normal); Ketones Urine 2+ (Negative); Leukocyte Esterase Urine Negative (Negative); Nitrate Urine Negative (Negative); Protein Urine Trace (Negative); Specific Gravity, Urine 1.015 (1.005-1.030); Urine Appearance Hazy (CLEAR); Urine Color Yellow (Yellow); Urobilinogen Urine Neg (Negative); pH Urine 5 (5-7)
[2022-10-19 20:52] LABS: Add Urine Culture? Yes; Bacteria Urine 1+ /hpf; Mucus Urine 1+ /hpf; RBC Urine 15-25 /hpf (0-2); WBC Urine 0-4 /hpf (0-5)
--- NOTE | 2022-10-19 22:35 | PC.NURSE ---
42 yr.old female admitted to #[id number] with dx of psychosis. Arrived to unit via w/c from ED accompanied by ED staff and security. Patient is involuntary. Involuntary status reviewed with patient. Patient alert to self only. Mood is anxious with a guarded affect. Patient is confused and repeats I don't know. to most questions during assessment. Most information was obtained from family in ED report. Patient denied SI and HI. Denied AVH as well. Patient is very confused and startles easily. Covered head most of assessment. Skin assessment completed with no issues noted or contraband found. Patient presented to ED with family for bizarre behavior that has been going on for past week. On Thursday patient shot family dog stating it had bit her but family stated she didn't have any bite rosado on her body. Since then she has not slept and has been walking and dancing around the house quoting the bible. She was also noted to be throwing things out of the house, staring at family members while they slept. At one point she got a hold of a gun and was lying in bed with the gun laying across her chest. Family members removed the gun and secured it. UDS positive for thc but family states she has a medical card for it. She has no psychiatric hx per family.
[2022-10-19 22:36] VITALS: BP 102/57; PULSE 71; RESP 17; TEMP 37.1; O2SAT 95
--- NOTE | 2022-10-20 01:50 | PC.NURSE ---
Patient noted to be agitated. Came to nurse's station stating she could hear men's voices and they were coming to get her. Patient appeared fearful and staff was unable to redirect or calm patient. PRN zyprexa po given after much encouragement. Patient remains confused. This adjusto writer operator escorted patient back to bed and sat with patient for several minutes until patient was able to calm down.
[2022-10-20] MEDS: OLANZapine 5 mg ODT PO (01:53)
--- NOTE | 2022-10-20 02:30 | PC.NURSE ---
Patient came to nurse's station frantic and crying. Continues to be confused. Patient stated she could hear sounds that were scaring her. Patient noted to be looking around and hiding face. Patient given haldol po at this time. Escorted patient back to room and stayed with patient til she became calmer.
[2022-10-20] MEDS: haloperidol 5 mg Tablet PO ×2 (02:32→20:39)
--- NOTE | 2022-10-20 05:41 | PC.NURSE ---
Patient did sleep approximately 1 hour since receiving haldol. Patient did come up to nurse's station several times frightened by sounds she was hearing in the hallway. Several peers were in hallway talking at time. Reassured patient she was safe and assisted patient back to bed. Patient is currently resting in room with eyes closed at this time.
[2022-10-20 07:35] VITALS: PULSE 77; RESP 18; O2SAT 97
[2022-10-20] MEDS: budesonide 0.5 mg/2 mL Neb INHALATION (07:35)
[2022-10-20] MEDS: albuterol 2.5 mg/3 mL Neb NEBULIZER (07:35)
[2022-10-20 07:40] VITALS: PULSE 80
[2022-10-20] MEDS: famotidine 20 mg Tablet 40 MG PO ×2 (08:54→17:23)
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
[2022-10-20 14:00] VITALS: BP 111/73; PULSE 71; RESP 17; O2SAT 97
[2022-10-20] MEDS: acetaminophen 325 mg Tablet 650 MG PO (14:21)
[2022-10-20] MEDS: calcium carbonate 500 mg Chew Tablet PO (16:10)
[2022-10-20] MEDS: magnesium hydroxide 30 mL UDC PO (18:48)
[2022-10-20 20:21] VITALS: RESP 18
--- NOTE | 2022-10-20 20:35 | PC.NURSE ---
Patient noted to be in patient's bathroom in hallway by nurse's station yelling out and crying. This health technical writer went to see what patient needed. Patient found in bathroom flailing arms and crying uncontrollably. Patient was confused and was unable to explain what was wrong. Patient is on menses and could not place her own pad in her pants. This health technical writer assisted patient with task. Patient continued to be agitated and mumbling. Escorted to room. Patient very paranoid walking to room and continued to stop in krishnamurthy and look at ceiling and floor. PRN ativan, benadryl and haldol po given. Patient assisted to bed.
[2022-10-20] MEDS: diphenhydrAMINE 50 mg Capsule PO (20:39)
[2022-10-20] MEDS: LORazepam 2 mg Tablet PO (20:39)
--- NOTE | 2022-10-21 07:17 | PC.NURSE ---
Patient has slept thru night with no further behavior.
[2022-10-21] MEDS: famotidine 20 mg Tablet 40 MG PO ×2 (09:10→17:36)
[2022-10-21] MEDS: nicotine 2 mg Gum BUCCAL ×3 (12:28→20:51)
[2022-10-21 14:00] VITALS: BP 116/77; PULSE 83; RESP 18; TEMP 36.8; O2SAT 100
[2022-10-21 14:10] LABS: RPR w(Moniotor) w/REFL Titer NON-REACTIVE (NON-REACTIVE)
[2022-10-21] MEDS: hyDROXYzine 25 mg Capsule 50 MG PO ×2 (15:29→20:49)
[2022-10-21] MEDS: ondansetron 4 MG Tablet PO (15:29)
--- NOTE | 2022-10-21 17:43 | W.PM.NPUPNS ---
Subjective NPU Subjective: Patient presented today reporting that she will benefit initially describing a desire that she wants to go home. We discussed feeling that that was a bad idea and she ultimately acknowledged that killing the dog was irrational and that marijuana is likely not the solution. We discussed, the risks, benefits and alternatives of a trial of Invega and she understood to be proceed as documented in this note. Mental Status Exam MSE Comments: This is a slender, white female in hospital scrubs with adequate grooming and eye contact. No abnormal movements. Cooperative with exam in mild distress. Speech was more normal rate and volume. Mood described as okay, affect congruent. Thought process: organized. Thought content: patient denies suicidal or homicidal ideation, endorses paranoia and guardedness, possible hyperreligious and odd delusions noted and endorses auditory and visual hallucinations sometimes. Attention and concentration are intact and memory appeared mostly reliable but none were formally tested. She is alert and oriented three times. Insight and judgment are impaired. Impulse control is impaired. Vitals/I&O/Wt Last Vital Signs Temp 97.5 F L 10/21/22 19:21 Pulse 90 10/21/22 19:21 Resp 16 10/21/22 19:21 BP 133/86 10/21/22 19:21 Pulse Ox 98 10/21/22 19:21 O2 Del Method 10/21/22 19:21 Data NPU 10/19/22 18:24 10/19/22 18:24 Micro: Microbiology 10/19/22 20:15 Urine Culture - Final Urine,Clean Catch Microbiology 10/19/22 20:15 Urine,Clean Catch Urine Culture - Final A&P Assessment and plan (1) Possible exposure to STD: (2) Seropositive rheumatoid arthritis of multiple sites: (3) Psychosis: Plan This is a 42 year old white female with a significant history of trauma and genetic loading for mental health, addiction, and lethality issues who presents after killing her dog last week reporting that she has been acting crazy and gone off her medications and wants to continue without medications at this time. We discussed the risks, benefits and alternatives of starting medication and she understood and agreed to proceed as is documented in this note. 1. Continue current medications except start Invega 3 mg p.o. daily and consider increase to 6 mg once tolerated as early as tomorrow. 2. Encourage individual, group and milieu therapy 3. Continue q-15 minute check for safety 4. Recommend sober living treatment at the highest level of care to which the patient is willing to commit. Involuntary Hold Information 96 Hour Hold: 96 Hour Involuntary Admission: Yes 96 Hour Hold Ending Date: 10/24/22 96 Hour Hold Ending Time: 00:00 Attestations NPU Medical Necessity Statement*: Inpatient hospitalization is medically necessary and the clinically appropriate intervention at this time. We will monitor medications and make changes as indicated. Likely length of stay is three to five days. Coding Level of Care Code Acute Code for Chg Fwd Diagnoses Possible exposure to STD Z20.2 Seropositive rheumatoid arthritis of multiple sites M05.79 Psychosis F29
[2022-10-21] MEDS: paliperidone ER 3 mg Tablet PO (18:55)
[2022-10-21 19:21] VITALS: BP 133/86; PULSE 90; RESP 16; TEMP 36.4; O2SAT 98
[2022-10-21] MEDS: blistex lip oint 7 gm Tube 1 APPLIC TOPICAL (20:28)
--- NOTE | 2022-10-21 20:49 | PC.NURSE ---
Patient pacing halls and coming to nurse's station frequently voicing concerns about peers and there well being. Assured patient that all patient's were safe and staff was observing and aware of peers on unit. Asked patient if she was anxious and she stated Of course. There are people in here that need help and I'm worried about them and my family. Rated anxiety at a8/10. PRN vistaril given as ordered.
[2022-10-21] MEDS: OLANZapine 5 mg ODT PO (22:02)
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
[2022-10-21] MEDS: trazodone 50 mg Tablet PO (22:50)
--- NOTE | 2022-10-21 22:50 | PC.NURSE ---
PRN trazodone given per request by patient for sleep. Zyprexa prn given earlier was effective and patient did not make any other delusional statements to staff.
[2022-10-22 06:00] VITALS: BP 120/74; PULSE 76; RESP 18; TEMP 36.5; O2SAT 97
[2022-10-22] MEDS: famotidine 20 mg Tablet 40 MG PO ×2 (09:31→17:58)
[2022-10-22] MEDS: paliperidone ER 3 mg Tablet PO (09:32)
[2022-10-22] MEDS: nicotine 2 mg Gum BUCCAL ×2 (09:33→18:00)
[2022-10-22] MEDS: blistex lip oint 7 gm Tube 1 APPLIC TOPICAL (12:36)
--- NOTE | 2022-10-22 13:44 | P.NPUPN_ITS ---
Subjective NPU Subjective: Patient presented today reporting that she was feeling better. She wanted to stay at the essentially half dose of Invega at 3 mg but agreed to increase to 6 mg after a discussion of the risks, benefits and alternatives she appeared to understand and agreed to proceed as is documented in this note. She continues to have limited insight into the seriousness of her condition and actions very much lobbying for discharge as soon as possible. Mental Status Exam MSE Comments: This is a slender, white female in hospital scrubs with adequate grooming and eye contact. No abnormal movements. Cooperative with exam in mild distress. Speech was more normal rate and volume. Mood described as okay, affect congruent. Thought process: organized. Thought content: patient denies suicidal or homicidal ideation, endorses paranoia and guardedness, possible hyperreligious and odd delusions noted and endorses auditory and visual hallucinations sometimes. Attention and concentration are intact and memory ap peared mostly reliable but none were formally tested. She is alert and oriented three times. Insight and judgment are impaired. Impulse control is impaired. Vitals/I&O/Wt Last Vital Signs Temp 97.5 F L 10/21/22 19:21 Pulse 90 10/21/22 19:21 Resp 16 10/21/22 19:21 BP 133/86 10/21/22 19:21 Pulse Ox 98 10/21/22 19:21 O2 Del Method 10/21/22 19:21 Data NPU 10/19/22 18:24 10/19/22 18:24 Micro: Microbiology 10/19/22 20:15 Urine Culture - Final Urine,Clean Catch Microbiology 10/19/22 20:15 Urine,Clean Catch Urine Culture - Final A&P Assessment and plan (1) Possible exposure to STD: (2) Seropositive rheumatoid arthritis of multiple sites: (3) Psychosis: Plan This is a 42 year old white female with a significant history of trauma and genetic loading for mental health, addiction, and lethality issues who presents after killing her dog last week reporting that she has been acting crazy and gone off her medications and wants to continue without medications at this time. We discussed the risks, benefits and alternatives of starting medication and she understood and agreed to proceed as is documented in this note. 1. Continue current medications except start Invega 3 mg p.o. daily and increase to 6 mg. 2. Encourage individual, group and milieu therapy 3. Continue q-15 minute check for safety 4. Recommend sober living treatment at the highest level of care to which the patient is willing to commit. Involuntary Hold Information 96 Hour Hold: 96 Hour Involuntary Admission: Yes 96 Hour Hold Ending Date: 10/24/22 96 Hour Hold Ending Time: 00:00 Attestations NPU Medical Necessity Statement*: Inpatient hospitalization is medically necessary and the clinically appropriate intervention at this time. We will monitor medications and make changes as indicated. Likely length of stay is three to five days. Considering 21-day-hold. Coding Level of Care Code Acute Code for Chg Fwd Diagnoses Possible exposure to STD Z20.2 Seropositive rheumatoid arthritis of multiple sites M05.79 Psychosis F29
[2022-10-22 14:00] VITALS: BP 112/75; PULSE 83; RESP 17; TEMP 36.8; O2SAT 98
[2022-10-22 22:00] VITALS: BP 109/76; PULSE 82; RESP 16; TEMP 36.9; O2SAT 98
[2022-10-23] MEDS: blistex lip oint 7 gm Tube 1 APPLIC TOPICAL (01:56)
[2022-10-23 06:00] VITALS: BP 114/77; PULSE 89; RESP 18; TEMP 36.8; O2SAT 97
[2022-10-23] MEDS: nicotine 2 mg Gum BUCCAL ×3 (07:35→20:30)
[2022-10-23] MEDS: famotidine 20 mg Tablet 40 MG PO ×2 (08:52→17:48)
[2022-10-23] MEDS: paliperidone ER 3 mg Tablet PO (08:52)
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
[2022-10-23] MEDS: ondansetron 4 MG Tablet PO (13:26)
[2022-10-23 14:00] VITALS: BP 106/72; PULSE 90; RESP 18; TEMP 36.6; O2SAT 99
--- NOTE | 2022-10-23 15:56 | PC.NURSE ---
Outpatient pharmacy contacted for supply of Linzess for pt to take while on unit.
--- NOTE | 2022-10-23 19:26 | PC.NURSE ---
At approximately 1345 pt complaining of intense abdominal pain and said she needed to go to the ER. Stated she is supposed to only eat Ensure-like products and mashed potatoes due to gastroparesis, but pt hasn't been following that; she's been eating what she's marked on her menus. Pt's abdomen is round, distended but mostly soft with active bowel sounds noted throughout. MD aware. Received directions to get pt's Linzess from outpt pharmacy so we can provide it here. About 30 minutes later pt moving about freely and said her pain was gone.
[2022-10-23 20:53] VITALS: BP 113/78; PULSE 83; RESP 16; TEMP 36.7; O2SAT 99
[2022-10-23] MEDS: diphenhydrAMINE 50 mg Capsule PO (22:19)
[2022-10-24] MEDS: nicotine 2 mg Gum BUCCAL ×4 (05:28→20:17)
[2022-10-24 05:50] VITALS: BP 115/76; PULSE 73; RESP 16; TEMP 36.5; O2SAT 99
[2022-10-24] MEDS: famotidine 20 mg Tablet 40 MG PO ×2 (08:38→17:11)
[2022-10-24] MEDS: hyDROXYzine 25 mg Capsule 50 MG PO ×3 (08:38→21:08)
[2022-10-24] MEDS: paliperidone ER 3 mg Tablet PO (08:38)
--- NOTE | 2022-10-24 13:30 | P.NPUPN_ITS ---
Subjective NPU Subjective: Patient presented today reporting that she is doing well. We had a discussion about how court would go and whether she needed to go to court. We discussed more specifically the things that I would say on the stand to share with the court why we feel she needs to stay longer. She reported a plan to go to court and reported feeling like she was much better and ready to be discharged. Mental Status Exam MSE Comments: This is a slender, white female in hospital scrubs with adequate grooming and eye contact. No abnormal movements. Cooperative with exam in mild distress. Speech was more normal rate and volume. Mood described as better, affect congruent. Thought process: organized. Thought content: patient denies suicidal or homicidal ideation, endorses decreasing paranoia and guardedness, p ossible hyperreligious and odd delusions noted and endorses auditory and visual hallucinations sometimes. Attention and concentration are intact and memory appeared mostly reliable but none were formally tested. She is alert and oriented three times. Insight and judgment are impaired. Impulse control is impaired. Vitals/I&O/Wt Last Vital Signs Temp 97.7 F 10/24/22 05:50 Pulse 73 10/24/22 05:50 Resp 16 10/24/22 05:50 BP 115/76 10/24/22 05:50 Pulse Ox 99 10/24/22 05:50 O2 Del Method 10/24/22 05:50 Data NPU 10/19/22 18:24 10/19/22 18:24 A&P Assessment and plan (1) Possible exposure to STD: (2) Seropositive rheumatoid arthritis of multiple sites: (3) Psychosis: Plan This is a 42 year old white female with a significant history of trauma and genetic loading for mental health, addiction, and lethality issues who presents after killing her dog last week reporting that she has been acting crazy and gone off her medications and wants to continue without medications at this time. We discussed the risks, benefits and alternatives of starting medication and she understood and agreed to proceed as is documented in this note. 1. Continue current medications except start Invega 3 mg p.o. daily and increased to 6 mg. 2. Encourage individual, group and milieu therapy 3. Continue q-15 minute check for safety 4. Recommend sober living treatment at the highest level of care to which the patient is willing to commit. Involuntary Hold Information 96 Hour Hold: 96 Hour Involuntary Admission: Yes 96 Hour Hold Ending Date: 10/24/22 96 Hour Hold Ending Time: 00:00 Attestations NPU Medical Necessity Statement*: Inpatient hospitalization is medically necessary and the clinically appropriate intervention at this time. We will monitor medications and make changes as indicated. Likely length of stay is 4-6 days. Considering 21-day-hold. Coding Level of Care Code Acute Code for Chg Fwd Diagnoses Possible exposure to STD Z20.2 Seropositive rheumatoid arthritis of multiple sites M05.79 Psychosis F29
[2022-10-24] MEDS: blistex lip oint 7 gm Tube 1 APPLIC TOPICAL (13:50)
[2022-10-24 14:00] VITALS: BP 111/79; PULSE 80; RESP 18; TEMP 36.6; O2SAT 100
--- NOTE | 2022-10-24 15:30 | PC.NURSE ---
Addendum entered by Mikaela Blevins LPN 10/24/22 18:10: Pt is back on the unit returning from court @ [id number]. Original Note: Pt was served papers for her 21 day hold. She saw the automatic paint sprayer operator while on the unit and a short time later was escorted from the facility to court by the police.
[2022-10-24 19:55] VITALS: BP 110/78; PULSE 102; RESP 18; TEMP 36.7; O2SAT 99
[2022-10-24] MEDS: prazosin 1 mg Capsule PO (20:58)
[2022-10-25 05:38] VITALS: BP 97/69; PULSE 115; RESP 17; TEMP 36.3; O2SAT 98
[2022-10-25] MEDS: nicotine 2 mg Gum BUCCAL ×3 (06:04→17:59)
[2022-10-25] MEDS: famotidine 20 mg Tablet 40 MG PO ×2 (08:31→17:58)
[2022-10-25] MEDS: paliperidone ER 3 mg Tablet PO (08:32)
--- NOTE | 2022-10-25 11:58 | W.PM.NPUPNS ---
Subjective NPU Subjective: Patient presented today reporting that she is feeling okay on the medication. We discussed the possibility considering the long-acting injectable and had a long discussion about the possible benefits of her doing that. She denies any side effects from the medication and reports she is starting to think as clear as she can remember. Mental Status Exam MSE Comments: This is a slender, white female in hospital scrubs with adequate grooming and eye contact. No abnormal movements. Cooperative with exam in mild distress. Speech was more normal rate and volume. Mood described as better, affect congruent. Thought process: organized. Thought content: patient denies suicidal or homicidal ideation, endorses decreasing paranoia and guardedness, possible hyperreligious and odd delusions noted and endorses auditory and visual hallucinations sometimes. Attention and concentration are intact and memory appeared mostly reliable but none were formally tested. She is alert and oriented three times. Insight and judgment are impaired. Impulse control is impaired. Vitals/I&O/Wt Last Vital Signs Temp 97.3 F L 10/25/22 05:38 Pulse 115 H 10/25/22 05:38 Resp 17 10/25/22 05:38 BP 97/69 10/25/22 05:38 Pulse Ox 98 10/25/22 05:38 O2 Del Method 10/25/22 05:38 Data NPU 10/19/22 18:24 10/19/22 18:24 A&P Assessment and plan (1) Possible exposure to STD: (2) Seropositive rheumatoid arthritis of multiple sites: (3) Psychosis: Plan This is a 42 year old white female with a significant history of trauma and genetic loading for mental health, addiction, and lethality issues who presents after killing her dog last week reporting that she has been acting crazy and gone off her medications and wants to continue without medications at this time. We discussed the risks, benefits and alternatives of starting medication and she understood and agreed to proceed as is documented in this note. 1. Continue current medications except start Invega 3 mg p.o. daily and increased to 6 mg. 2. Encourage individual, group and milieu therapy 3. Continue q-15 minute check for safety 4. Recommend sober living treatment at the highest level of care to which the patient is willing to commit. Involuntary Hold Information 96 Hour Hold: 96 Hour Involuntary Admission: Yes 96 Hour Hold Ending Date: 10/24/22 96 Hour Hold Ending Time: 00:00 Attestations NPU Medical Necessity Statement*: Inpatient hospitalization is medically necessary and the clinically appropriate intervention at this time. We will monitor medications and make changes as indicated. Likely length of stay is 7-10 days. . Coding Level of Care Code Acute Code for Chg Fwd Diagnoses Possible exposure to STD Z20.2 Seropositive rheumatoid arthritis of multiple sites M05.79 Psychosis F29
[2022-10-25 14:00] VITALS: BP 111/67; PULSE 83; RESP 18; TEMP 36.9; O2SAT 98
[2022-10-25 19:48] VITALS: BP 103/67; PULSE 75; RESP 16; TEMP 36.8; O2SAT 97
[2022-10-25] MEDS: prazosin 1 mg Capsule PO (21:28)
[2022-10-25 22:12] VITALS: BP 110/62; PULSE 81; RESP 18; TEMP 36.5; O2SAT 98
[2022-10-26] MEDS: nicotine 2 mg Gum BUCCAL ×6 (01:42→21:56)
[2022-10-26] MEDS: paliperidone ER 3 mg Tablet PO (07:54)
[2022-10-26] MEDS: famotidine 20 mg Tablet 40 MG PO ×2 (07:54→17:25)
[2022-10-26 14:00] VITALS: BP 102/68; PULSE 86; RESP 17; TEMP 36.7; O2SAT 96
--- NOTE | 2022-10-26 15:38 | P.NPUPN_ITS ---
Subjective NPU Subjective: Patient presents today reporting that she feels much better as she is taking her medications. She identifies that this is something she needs to do long-term as she endorses appreciation for us challenging her to be on the medication. We will continue to discuss the possibility of a long-acting injectable and we agreed to work with the treatment team tomorrow to make sure that that was a reasonable thing given insurance and other logistics. She reports she is sleeping better and eating fine. Mental Status Exam MSE Comments: This is a slender, white female in hospital scrubs with adequate grooming and eye contact. No abnormal movements. Cooperative with exam in mild distress. Speech was more normal rate and volume. Mood described as better, affect congruent. Thought process: organized. Thought content: patient denies suicidal or homicidal ideation, delusions reported and guardedness, possible hyperreligious and odd delusions appear absent. She currently denies any auditory and visual hallucinations. Attention and concentration are intact and memory appeared mostly reliable but none were formally tested. She is alert and oriented three times. Insight and judgment are improving. Impulse control is improving. Vitals/I&O/Wt Last Vital Signs Temp 98.0 F 10/26/22 14:00 Pulse 86 10/26/22 14:00 Resp 17 10/26/22 14:00 BP 102/68 10/26/22 14:00 Pulse Ox 96 10/26/22 14:00 O2 Del Method 10/25/22 05:38 Weight last 48 hrs Weight 60.509 kg Data NPU 10/19/22 18:24 10/19/22 18:24 A&P Assessment and plan (1) Possible exposure to STD: (2) Seropositive rheumatoid arthritis of multiple sites: (3) Psychosis: Plan This is a 42 year old white female with a significant history of trauma and genetic loading for mental health, addiction, and lethality issues who presents after killing her dog last week reporting that she has been acting crazy and gone off her medications and wants to continue without medications at this time. We discussed the risks, benefits and alternatives of starting medication and she understood and agreed to proceed as is documented in this note. 1. Continue current medications except started Invega 3 mg p.o. daily and increased to 6 mg. 2. Encourage individual, group and milieu therapy 3. Continue q-15 minute check for safety 4. Recommend sober living treatment at the highest level of care to which the patient is willing to commit. Involuntary Hold Information 96 Hour Hold: 96 Hour Involuntary Admission: Yes 96 Hour Hold Ending Date: 10/24/22 96 Hour Hold Ending Time: 00:00 Attestations NPU Medical Necessity Statement*: Inpatient hospitalization is medically necessary and the clinically appropriate intervention at this time. We will monitor medic ations and make changes as indicated. Likely length of stay is 5-8 days. . Coding Level of Care Code Acute Code for Chg Fwd Diagnoses Possible exposure to STD Z20.2 Seropositive rheumatoid arthritis of multiple sites M05.79 Psychosis F29
[2022-10-26] MEDS: prazosin 1 mg Capsule PO (20:37)
[2022-10-26 20:47] VITALS: BP 101/50; RESP 16; O2SAT 98
[2022-10-27 06:00] VITALS: BP 96/65; PULSE 79; RESP 16; TEMP 36.9; O2SAT 98
[2022-10-27] MEDS: nicotine 2 mg Gum BUCCAL ×2 (06:48→15:09)
[2022-10-27] MEDS: paliperidone ER 3 mg Tablet PO ×2 (08:51→11:40)
[2022-10-27] MEDS: famotidine 20 mg Tablet 40 MG PO ×2 (08:51→17:36)
[2022-10-27] MEDS: hyDROXYzine 25 mg Capsule 50 MG PO (09:04)
--- NOTE | 2022-10-27 09:06 | PC.NURSE ---
[employer] Patient approached this RN in the hallway and stated she was getting very upset due to receiving a call and being told her dog had been locked inside her house and hadn't been fed or watered in 2 days. Patient given hydroxyzine 50 mg PO.
[2022-10-27 14:00] VITALS: BP 96/57; PULSE 77; RESP 18; TEMP 37; O2SAT 99
--- NOTE | 2022-10-27 18:16 | W.PM.NPUPNS ---
Subjective NPU Subjective: Patient presents today reporting that she is feeling better and he reports concur. We had a discussion about the long-acting injectable and she was open to the possibility of starting that tomorrow. We discussed a tentative discharge vision and continue to discuss her life and how long she has struggled with psychosis and significant mood dysregulation. She endorsed a commitment to following up with ongoing treatment plans. Mental Status Exam MSE Comments: This is a slender, white female in hospital scrubs with adequate grooming and eye contact. No abnormal movements. Cooperative with exam in mild distress. Speech was more normal rate and volume. Mood described as better, affect congruent. Thought process: organized. Thought content: patient denies suicidal or homicidal ideation, no delusions reported and guardedness, possible hyperreligious and odd delusions appear absent. She currently denies any auditory and visual hallucinations. Attention and concentration are intact and memory appeared mostly reliable but none were formally tested. She is alert and oriented three times. Insight and judgment are improving. Impulse control is improving. Vitals/I&O/Wt Last Vital Signs Temp 98.6 F 10/27/22 21:07 Pulse 82 10/27/22 21:07 Resp 16 10/27/22 21:07 BP 103/68 10/27/22 21:07 Pulse Ox 98 10/27/22 21:07 O2 Del Method 10/25/22 05:38 Data NPU 10/19/22 18:24 10/19/22 18:24 A&P Assessment and plan (1) Possible exposure to STD: (2) Seropositive rheumatoid arthritis of multiple sites: (3) Psychosis: Plan This is a 42 year old white female with a significant history of trauma and genetic loading for mental health, addiction, and lethality issues who presents after killing her dog last week reporting that she has been acting crazy and gone off her medications and wants to continue without medications at this time. We discussed the risks, benefits and alternatives of starting medication and she understood and agreed to proceed as is documented in this note. 1. Continue current medications except started Invega 3 mg p.o. daily and increased to 6 mg. Work with treatment team on arrangements and logistics for Invega Sustenna. 2. Encourage individual, group and milieu therapy 3. Continue q-15 minute check for safety 4. Recommend sober living treatment at the highest level of care to which the patient is willing to commit. Involuntary Hold Information 96 Hour Hold: 96 Hour Involuntary Admission: Yes 96 Hour Hold Ending Date: 10/24/22 96 Hour Hold Ending Time: 00:00 Attestations NPU Medical Necessity Statement*: Inpatient hospitalization is medically necessary and the clinically appropriate intervention at this time. We will monitor medications and make changes as indicated. Likely length of stay is 4-7 days. Coding Level of Care Code Acute Code for Chg Fwd Diagnoses Possible exposure to STD Z20.2 Seropositive rheumatoid arthritis of multiple sites M05.79 Psychosis F29
[2022-10-27] MEDS: prazosin 1 mg Capsule PO (20:41)
[2022-10-27 21:07] VITALS: BP 103/68; PULSE 82; RESP 16; TEMP 37; O2SAT 98
[2022-10-27] MEDS: nicotine 4 mg lozenge MUCOUS MEM (22:22)
[2022-10-28] MEDS: nicotine 2 mg Gum BUCCAL (06:55)
[2022-10-28 06:58] VITALS: BP 105/70; PULSE 93; RESP 16; TEMP 36.6; O2SAT 97
[2022-10-28 08:00] VITALS: PULSE 93; RESP 16; O2SAT 97
[2022-10-28] MEDS: famotidine 20 mg Tablet 40 MG PO ×2 (08:38→17:19)
[2022-10-28] MEDS: paliperidone ER 6 mg Tablet PO (08:39)
[2022-10-28] MEDS: nicotine 4 mg lozenge MUCOUS MEM ×2 (08:39→17:27)
--- NOTE | 2022-10-28 12:20 | PC.NURSE ---
YONI SUSTENNA 234MG IM GIVEN LT DELTOID USING CLEAN TECH, PT MARY WELL, SITE COVERED WITH BANDAID, MED EDUCATION PROVIDED TO PT, PT VERB UNDERSTANDING AND HAS NO QUESTIONS/CONCERNS
[2022-10-28] MEDS: paliperidone palmitate 234 mg Syringe IM (12:22)
[2022-10-28 14:00] VITALS: BP 112/73; PULSE 95; RESP 20; TEMP 37.1; O2SAT 97
--- NOTE | 2022-10-28 19:21 | P.NPUPN_ITS ---
Subjective NPU Subjective: Patient was in today reporting that she is feeling better and very open to discussing her treatment plans moving forward. We agreed we would work with the treatment team to make sure all of the things are in place. She is agreeable to initiating Invega Sustenna 234 mg IM to the deltoid as a loading dose after discussion of the risks, vet's alternatives of using long-acting injectable to help manage her condition. She understood and agreed to proceed as is documented in this note and we discussed the possibility discharge in the next few days. Mental Status Exam MSE Comments: This is a slender, white female in hospital scrubs with adequate grooming and eye contact. No abnormal movements. Cooperative with exam in mild distress. Speech was more normal rate and volume. Mood described as better, affect congruent. Thought process: organized. Thought content: patient denies suicidal or homicidal ideation, no delusions reported and guardedness, possible hyperreligious and odd delusions appear absent. She currently denies any auditory and visual hallucinations. Attention and concentration are intact and memory appeared mostly reliable but none were formally tested. She is alert and oriented three times. Insight and judgment are improving. Impulse control is improving. Vitals/I&O/Wt Last Vital Signs Temp 98.0 F 10/28/22 19:39 Pulse 92 10/28/22 20:00 Resp 16 10/28/22 20:00 BP 101/64 10/28/22 19:39 Pulse Ox 97 10/28/22 20:00 O2 Del Method 10/28/22 20:00 Data NPU 10/19/22 18:24 10/19/22 18:24 A&P Assessment and plan (1) Possible exposure to STD: (2) Seropositive rheumatoid arthritis of multiple sites: (3) Psychosis: Plan This is a 42 year old white female with a significant history of trauma and gen etic loading for mental health, addiction, and lethality issues who presents after killing her dog last week reporting that she has been acting crazy and gone off her medications and wants to continue without medications at this time. We discussed the risks, benefits and alternatives of starting medication and she understood and agreed to proceed as is documented in this note. 1. Continue current medications except started Invega 3 mg p.o. daily and increased to 6 mg. Started Invega Sustenna 234 mg IM to deltoid. 2. Encourage individual, group and milieu therapy 3. Continue q-15 minute check for safety 4. Recommend sober living treatment at the highest level of care to which the patient is willing to commit. Involuntary Hold Information 96 Hour Hold: 96 Hour Involuntary Admission: Yes 96 Hour Hold Ending Date: 10/24/22 96 Hour Hold Ending Time: 00:00 Attestations NPU Medical Necessity Statement*: Inpatient hospitalization is medically necessary and the clinically appropriate intervention at this time. We will monitor medications and make changes as indicated. Likely length of stay is 1-4 days. Coding Level of Care Code Acute Code for Chg Fwd Diagnoses Possible exposure to STD Z20.2 Seropositive rheumatoid arthritis of multiple sites M05.79 Psychosis F29
[2022-10-28 19:39] VITALS: BP 101/64; PULSE 93; RESP 16; TEMP 36.7; O2SAT 97
[2022-10-28 20:00] VITALS: PULSE 92; RESP 16; O2SAT 97
[2022-10-28] MEDS: prazosin 1 mg Capsule PO (20:42)
[2022-10-29] MEDS: nicotine 4 mg lozenge MUCOUS MEM ×3 (00:42→18:21)
[2022-10-29 06:00] VITALS: BP 94/61; PULSE 105; RESP 18; TEMP 36.8; O2SAT 98
[2022-10-29] MEDS: paliperidone ER 6 mg Tablet PO (08:36)
[2022-10-29] MEDS: famotidine 20 mg Tablet 40 MG PO ×2 (08:37→17:04)
[2022-10-29 14:00] VITALS: BP 110/74; PULSE 68; RESP 18; TEMP 36.6; O2SAT 96
[2022-10-29] MEDS: hyDROXYzine 25 mg Capsule PO (14:42)
--- NOTE | 2022-10-29 19:41 | W.PM.NPUPNS ---
Subjective NPU Subjective: Patient attended today reporting that she is continuing to feel better. She will [employer] also another patient had walked into her room. She knowledge that she knows not doing well but [place] given her history. There were no concerning interactions. We discussed that we are working the treatment team for discharge planning and at this point discussed the plan of discharge by Thursday. We talked about discharge about being possibility but either to her given the 21-day hold felt like a victory. We discussed her significant improvement on the medication and the process by which she can get to the twice a year injection. Mental Status Exam MSE Comments: This is a slender, white female in hospital scrubs with adequate grooming and eye contact. No abnormal movements. Cooperative with exam in mild distress. Speech was more normal rate and volume. Mood described as better, affect congruent. Thought process: organized. Thought content: patient denies suicidal or homicidal ideation, no delusions reported and guardedness, possible hyperreligious and odd delusions appear absent. She currently denies any auditory and visual hallucinations. Attention and concentration are intact and memory appeared mostly reliable but none were formally tested. She is alert and oriented three times. Insight and judgment are improving. Impulse control is improving. Vitals/I&O/Wt Last Vital Signs Temp 98.4 F 10/29/22 21:24 Pulse 95 10/29/22 21:24 Resp 16 10/29/22 21:24 BP 128/77 10/29/22 21:24 Pulse Ox 97 10/29/22 21:24 O2 Del Method 10/29/22 21:24 Data NPU 10/19/22 18:24 10/19/22 18:24 A&P Assessment and plan (1) Possible exposure to STD: (2) Seropositive rheumatoid arthritis of multiple sites: (3) Psychosis: Plan This is a 42 year old white female with a significant history of trauma and genetic loading for mental health, addiction, and lethality issues who presents after killing her dog last week reporting that she has been acting crazy and gone off her medications and wants to continue without medications at this time. We discussed the risks, benefits and alternatives of starting medication and she understood and agreed to proceed as is documented in this note. 1. Continue current medications except started Invega 3 mg p.o. daily and increased to 6 mg. Started Invega Sustenna 234 mg IM to deltoid. 2. Encourage individual, group and milieu therapy 3. Continue q-15 minute check for safety 4. Recommend sober living treatment at the highest level of care to which the patient is willing to commit. Involuntary Hold Information 96 Hour Hold: 96 Hour Involuntary Admission: Yes 96 Hour Hold Ending Date: 10/24/22 96 Hour Hold Ending Time: 00:00 Attestations NPU Medical Necessity Statement*: Inpatient hospitalization is medically necessary and the clinically appropriate intervention at this time. We will monitor medications and make changes as indicated. Likely length of stay is 1-2 days. Coding Level of Care Code Acute Code for Chg Fwd Diagnoses Possible exposure to STD Z20.2 Seropositive rheumatoid arthritis of multiple sites M05.79 Psychosis F29
[2022-10-29] MEDS: trazodone 50 mg Tablet PO (20:58)
[2022-10-29] MEDS: prazosin 1 mg Capsule PO (20:58)
[2022-10-29 21:24] VITALS: BP 128/77; PULSE 95; RESP 16; TEMP 36.9; O2SAT 97
[2022-10-30 06:00] VITALS: BP 104/68; PULSE 89; RESP 16; TEMP 36.6; O2SAT 96
[2022-10-30] MEDS: paliperidone ER 6 mg Tablet PO (09:14)
[2022-10-30] MEDS: famotidine 20 mg Tablet 40 MG PO (09:14)
[2022-10-30] MEDS: nicotine 2 mg Gum BUCCAL (09:17)
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
[2022-10-30 12:41] VITALS: BP 104/68; PULSE 89; RESP 16; TEMP 36.6; O2SAT 96
== END 2022-10-30 13:33 | disposition home or self-care (01) | DRG 885 ==
LOC: ER 20:40 → NP 10-20 00:04
PROVIDERS: Emergency Medicine; Admitting Provider Psychiatry & Neurology Psychiatry; Emergency Provider Emergency Medicine; PCP Internal Medicine Gastroenterology; Visit Provider Psychiatry & Neurology Psychiatry
DX: F29 Unspecified psychosis not due to a substance or known physiological condition (principal); F32.A Depression, unspecified; F41.9 Anxiety disorder, unspecified; Z91.14 Patient's other noncompliance with medication regimen; F12.90 Cannabis use, unspecified, uncomplicated; M05.9 Rheumatoid arthritis with rheumatoid factor, unspecified; Z81.8 Family history of other mental and behavioral disorders; F17.210 Nicotine dependence, cigarettes, uncomplicated
CPT/HCPCS: 36415; 70450; 80053; 80306; 80307; 81001; 81025; 84443; 85025; 86592; 87086; 94640; 96372; 97150; 97165; 99285; J7613; J7626; Q0162; Q0163

== ENCOUNTER → 2022-11-25 10:00 | Outpatient (BNVA) | payer MEDICAID, SELFPAY | PROVIDERS: PCP Internal Medicine Gastroenterology; Visit Provider Nurse Practitioner Women's Health | DX: Z01.419 Encounter for gynecological examination (general) (routine) without abnormal findings (principal); Z12.39 Encounter for other screening for malignant neoplasm of breast | CPT/HCPCS: 87624 ==

== ENCOUNTER 2022-12-02 11:23 | Outpatient (CLI) | payer MEDICAID, SELFPAY ==
--- NOTE | 2022-12-02 11:38 | MM_ITS ---
WS: [id number] BILATERAL SCREENING DIGITAL TOMOSYNTHESIS MAMMOGRAM WITH CAD HISTORY: Screening exam. COMPARISON: None available. Bilateral CC and MLO views with tomosynthesis and synthetic mammography submitted. Computer aided det ection analyzed. Breast composition: There are scattered areas of fibroglandular density. No suspicious masses, microc alcifications or architectural distortion. MM/[place] [id number] IMPRESSION: BI-RADS: 1-Negative FOLLOW UP: 1 Year Follow-up
== END 2022-12-02 11:24 | disposition home or self-care (01) ==
PROVIDERS: PCP Internal Medicine Gastroenterology; Visit Provider Nurse Practitioner Women's Health
DX: Z12.31 Encounter for screening mammogram for malignant neoplasm of breast (principal)
CPT/HCPCS: 77063; 77067

== ENCOUNTER → 2023-01-07 12:25 | Outpatient (BNVA) | payer MEDICAID, SELFPAY | PROVIDERS: PCP Internal Medicine Gastroenterology; Visit Provider Nurse Practitioner | DX: Z79.899 Other long term (current) drug therapy (principal) | CPT/HCPCS: 80061; 83036 ==

== ENCOUNTER 2023-05-08 13:51 | Outpatient (CLI) | payer MEDICAID, SELFPAY ==
--- NOTE | 2023-05-08 13:56 | MR_ITS ---
WS: [id number] MRI HEAD WITHOUT AND WITH GADOLINIUM ENHANCEMENT WITH ATTENTION TO THE ORBITS TECHNIQUE: Sagittal T1, T2 axial, T2 axial FLAIR, axial susceptibility weighted imaging, axial diffus ion weighted images, and coronal T2 images were obtained. Pre and post-T1 axial and post T1 coronal i mages. ADC and FSPGR images. High-resolution orbital imaging with postgadolinium fat saturation orbit al technique. CLINICAL INFORMATION: VITREOUS OPACITIES/CORTICAL BLINDNESS COMPARISON: CT head 10/19/2022 FINDINGS: No evidence of restricted diffusion to suggest acute ischemia. Ventricular system and basilar cistern s are patent. No suspicious intracranial signal normalities. Normal coffman-white differentiation. Ember l posterior fossa. Normal vascular flow voids at the skull base. No extra-axial fluid collections. No evidence of mass or mass effect. Paranasal sinuses are well aerated. Mastoid air cells are well aera kaiser. Normal posterior nasopharynx. Normal visualized parapharyngeal fat. Normal optic chiasm and pituitary infundibulum. Normal cavernous sinuses and Meckel's cave. No eviden ce of sellar or suprasellar lesion. Prechiasmatic optic nerves are normal in appearance. No evidence of optic nerve edema. Visualized rectus muscles are normal in appearance. Normal intraconal fat. Glob es appear normal. No abnormal optic nerve enhancement. No evidence of optic neuritis. Visualized proximal 7th and 8th cranial nerves appear normal. IMPRESSION: 1. No evidence of optic neuritis or optic nerve edema. Rectus muscles are normal in appearance. 2. Normal optic chiasm and pituitary infundibulum. 3. No abnormal intracranial enhancement. 4. No suspicious intracranial signal normalities. 5. No restricted diffusion to suggest acute ischemia. 6. No other suspicious findings.
[2023-05-08] MEDS: gadobenate dimeglumine 20 mL vial IV (15:35)
== END 2023-05-08 13:52 | disposition home or self-care (01) ==
LOC: RAD 13:52
PROVIDERS: PCP Internal Medicine Gastroenterology; Visit Provider Student in an Organized Health Care Education/Training Program
DX: H43.391 Other vitreous opacities, right eye (principal); H47.619 Cortical blindness, unspecified side of brain
CPT/HCPCS: 70543; 70553; A9577

== ENCOUNTER → 2023-09-22 14:52 | Outpatient (BNVA) | payer MEDICAID, SELFPAY | PROVIDERS: Visit Provider Internal Medicine Rheumatology | DX: Z11.1 Encounter for screening for respiratory tuberculosis (principal); Z79.899 Other long term (current) drug therapy; M05.79 Rheumatoid arthritis with rheumatoid factor of multiple sites without organ or systems involvement | CPT/HCPCS: 36415; 80076; 82565; 85025; 86140; 86480 ==

== ENCOUNTER → 2023-12-29 10:10 | Outpatient (BNVA) | payer MEDICAID, SELFPAY | PROVIDERS: Visit Provider Nurse Practitioner | DX: Z79.899 Other long term (current) drug therapy (principal); F32.A Depression, unspecified | CPT/HCPCS: 80061; 83036 ==

== ENCOUNTER → 2024-01-19 14:04 | Outpatient (BNVA) | payer MEDICAID, SELFPAY | PROVIDERS: Visit Provider Internal Medicine Rheumatology | DX: Z79.899 Other long term (current) drug therapy (principal); M05.79 Rheumatoid arthritis with rheumatoid factor of multiple sites without organ or systems involvement | CPT/HCPCS: 36415; 80076; 82565; 85025; 86140 ==

== ENCOUNTER → 2024-07-19 14:07 | Outpatient (BNVA) | payer MEDICAID, SELFPAY | PROVIDERS: Visit Provider Internal Medicine Rheumatology | DX: M05.79 Rheumatoid arthritis with rheumatoid factor of multiple sites without organ or systems involvement (principal); Z79.899 Other long term (current) drug therapy; R76.8 Other specified abnormal immunological findings in serum; K31.84 Gastroparesis | CPT/HCPCS: 36415; 80076; 82565; 85025; 85651; 86140 ==

== ENCOUNTER → 2024-12-05 10:47 | Outpatient (BNVA) | payer MEDICAID, SELFPAY | PROVIDERS: Visit Provider Nurse Practitioner Women's Health | DX: N95.0 Postmenopausal bleeding (principal) | CPT/HCPCS: 82670; 83001; 83002; 84146; 87624 ==

== ENCOUNTER → 2024-12-06 15:20 | Outpatient (BNVA) | payer MEDICAID, SELFPAY | PROVIDERS: Visit Provider Nurse Practitioner Women's Health | DX: N83.201 Unspecified ovarian cyst, right side (principal) | CPT/HCPCS: 76830 ==

== ENCOUNTER 2024-12-07 14:51 | Outpatient (CLI) | payer MEDICAID, SELFPAY ==
--- NOTE | 2024-12-07 15:20 | MM_ITS ---
WS: [id number] BILATERAL 3D TOMOSYNTHESIS DIGITAL SCREENING MAMMOGRAPHY WITH CAD CLINICAL INFORMATION: Z12.39 - Encounter for other screening for malignant neop... HISTORY: Screening mammogram. No current complaints. COMPARISON: 2022 TECHNIQUE: Bilateral CC and MLO views. FINDINGS: Scattered fibroglandular densities bilaterally. No suspicious focal mass, asymmetry, calcifications, or architectural distortion. No evidence of malignancy. Incidental punctate and lucent centered calcifications. MM/MM [facility] tomosynthesis [id number] IMPRESSION: DENSITY: There are scattered areas of fibroglandular density. BI-RADS: 2 - Benign. FOLLOW UP: 1 Year Follow-up Recommend return to annual screening mammography.
== END 2024-12-07 14:52 | disposition home or self-care (01) ==
PROVIDERS: Visit Provider Nurse Practitioner Women's Health
DX: Z12.31 Encounter for screening mammogram for malignant neoplasm of breast (principal); R92.323 Mammographic fibroglandular density, bilateral breasts; R92.1 Mammographic calcification found on diagnostic imaging of breast
CPT/HCPCS: 77063; 77067

== ENCOUNTER 2025-01-20 13:02 | Outpatient (CLI) | payer MEDICAID, SELFPAY ==
[2025-01-20 13:19] LABS: Basophils # 0.1 10^3/uL (0.0-0.1); Basophils % 0.6 %; Eosinophils # 0.2 10^3/uL (0.0-0.8); Eosinophils % 1.2 %; Hematocrit 40.2 % (36-47); Lymphocytes # 3.9 10^3/uL (0.8-4.8); Lymphocytes % 31.6 %; Mean Corpuscular HGB Conc 32.6 g/dL (30-55); Mean Corpuscular Hemoglobin 27.1 pg (27-33); Mean Corpuscular Volume 83.1 fl (85-98); Mean Platelet Volume 9.8 fL (7.4-10.4); Monocytes # 1.1 10^3/uL (0.2-0.9); Monocytes % 8.9 %; Neutrophils # 7.06 10^3/uL (1.8-7.7); Neutrophils % 57.4 %; Nucleated Red Blood Cells % 0 %; Platelet Count 327 10^3/cmm (157-399); Red Blood Count 4.84 10^6/uL (3.85-5.65); White Blood Count 12.29 10^3/uL (3.29-11.43)
[2025-01-20 13:23] LABS: Erythrocyte Sedimentation Rate 19 mm/hr (0-15)
[2025-01-20 13:34] LABS: Alanine Aminotransferase 11 U/L (0-33); Albumin Level 4.2 g/dL (3.5-5.2); Alkaline Phosphatase 56 U/L (35-105); Aspartate Amino Transferase 10 U/L (0-32); C Reactive Protein 4.1 mg/L (0.0-4.9); Globulin 2.9 g/dL (1.3-4.6); Glomerular Filtration Rate 134.7 mL/min (90-130); Total Bilirubin 0.2 mg/dL (0.15-1.2); Total Protein 7.1 g/dL (6.6-8.7)
== END 2025-01-20 13:03 | disposition home or self-care (01) ==
PROVIDERS: PCP Nurse Practitioner Family; Visit Provider Internal Medicine Rheumatology
DX: Z79.899 Other long term (current) drug therapy (principal)
CPT/HCPCS: 36415; 80076; 82565; 85025; 85651; 86140

== ENCOUNTER → 2025-05-03 11:19 | Outpatient (BNVA) | payer MEDICAID, SELFPAY | PROVIDERS: Visit Provider Nurse Practitioner | DX: Z79.899 Other long term (current) drug therapy (principal) | CPT/HCPCS: 80061; 83036 ==

== ENCOUNTER → 2025-06-01 12:28 | Outpatient (BNVA) | payer MEDICAID, SELFPAY | PROVIDERS: Visit Provider Internal Medicine Rheumatology | DX: Z79.899 Other long term (current) drug therapy (principal) | CPT/HCPCS: 36415; 80076; 82306; 82565; 85025; 85651; 86140; 86480; 86704; 86803; 87340 ==